=== PATIENT | male | born 1960 | race Caucasian/White ===

== ENCOUNTER 2017-02-16 03:16 | Emergency (ER) | payer OTHER ==
[2017-02-16] MEDS ORDERED: ONDANSETRON 4 MG/2 ML VIAL IVP STA (03:31)
[2017-02-16] MEDS ORDERED: KETOROLAC 60 MG/2 ML VIAL IVP STA (03:31)
[2017-02-16] MEDS ORDERED: SODIUM CHLORIDE 0.9% 1,000 ML IV ONE (03:31)
[2017-02-16] MEDS ORDERED: HYDROmorphone 1 MG/ML SYRINGE IVP STA (03:31)
[2017-02-16] MEDS ORDERED: ONDANSETRON 4 MG/2 ML VIAL ONE (03:45)
[2017-02-16] MEDS ORDERED: HYDROmorphone 1 MG/ML SYRINGE ONE (03:45)
[2017-02-16] MEDS ORDERED: KETOROLAC 30 MG/ML VIAL ONE (03:45)
[2017-02-16] MEDS ORDERED: oxyCODONE/ACET 5/325 Prepack 4 PO STA (05:00)
[2017-02-16] MEDS ORDERED: ONDANSETRON ODT 4 MG Prepack 2 TL PRN (05:01)
[2017-02-16] MEDS ORDERED: HYDROcod/ACET 5/325 Prepack 6 PO ONE (05:03)
[2017-02-16] MEDS ORDERED: ONDANSETRON ODT 4 MG Prepack 2 TL ONE (05:03)
[2017-02-16] MEDS ORDERED: oxyCODONE/ACET 5/325 Prepack 4 PO ONE (05:14)
== END 2017-02-16 05:17 | disposition home or self-care (01) ==
DX: N13.2 Hydronephrosis with renal and ureteral calculous obstruction (principal); R10.31 Right lower quadrant pain
CPT/HCPCS: 36415; 74176; 80053; 81001; 83690; 87077; 87086; 87181; 96374; 96375; 99283; 99284; J1170

== ENCOUNTER 2017-04-18 14:26 | Outpatient (CLI) | payer OTHER ==
[2017-04-18 19:19] LABS: HCT - HEMATOCRIT 41.8 % (42.0-52.0); MEAN CORPUSCULAR HGB CONC 33.5 g/dL (32.0-36.0); MEAN CORPUSCULAR VOLUME 86.4 fL (80.0-94.0); MEAN PLATELET VOLUME 8.8 fL (7.4-11.4); RED BLOOD COUNT 4.83 10^6/uL (4.70-6.10); RED CELL DISTRIBUTION WIDTH 13.1 % (12.0-15.0); WHITE BLOOD COUNT 18.7 x10^3/uL (4.8-10.8)
[2017-04-18 19:55] LABS: ALBUMIN/GLOBULIN RATIO 1.1 (1.0-2.2); BILIRUBIN,TOTAL 0.9 mg/dL (0.2-1.0); BUN - BLOOD UREA NITROGEN 18 mg/dL (6-20); CALCIUM 9.8 mg/dL (8.5-10.3); CARBON DIOXIDE - CO2 25 mmol/L (21-32); CHLORIDE 102 mmol/L (101-111); GFR - MDRD 78 (>89); GLUCOSE 136 mg/dL (70-100); POTASSIUM 3.6 mmol/L (3.5-5.0); SODIUM 138 mmol/L (135-145); TOTAL PROTEIN 7.9 g/dL (6.7-8.2)
[2017-04-21 14:36] LABS: ANA SCREEN NEGATIVE (NEGATIVE)
== END 2017-04-18 23:59 | disposition home or self-care (01) ==
LOC: LAB.WCP 14:26
PROVIDERS: ATTEND Family Medicine
DX: M79.1 Myalgia (principal); R50.9 Fever, unspecified; R79.89 Other specified abnormal findings of blood chemistry; E01.0 Iodine-deficiency related diffuse (endemic) goiter; Z12.5 Encounter for screening for malignant neoplasm of prostate
CPT/HCPCS: 36415; 80053; 80074; 84153; 84443; 84550; 85025; 85651; 86038; 86140; 86200; 86430; 87341

== ENCOUNTER 2017-05-03 07:25 | Outpatient (CLI) | payer OTHER ==
[2017-05-03 13:09] LABS: BILIRUBIN,URINE NEGATIVE (NEGATIVE)
[2017-05-03 13:19] LABS: BASOPHILS % (AUTO) 0.4 %; EOSINOPHILS # (AUTO) 0.1 10^3/uL (0.0-0.7); EOSINOPHILS % (AUTO) 2.9 %; HCT - HEMATOCRIT 39.7 % (42.0-52.0); HGB - HEMOGLOBIN 13.4 g/dL (14.0-18.0); LYMPHOCYTES # (AUTO) 0.7 10^3/uL (1.5-3.5); LYMPHOCYTES % (AUTO) 19.2 %; MEAN CORPUSCULAR HEMOGLOBIN 28.6 pg (27.0-31.0); MEAN CORPUSCULAR HGB CONC 33.8 g/dL (32.0-36.0); MEAN CORPUSCULAR VOLUME 84.7 fL (80.0-94.0); MEAN PLATELET VOLUME 7.8 fL (7.4-11.4); MONOCYTES # (AUTO) 0.4 10^3/uL (0.0-1.0); MONOCYTES % (AUTO) 10.3 %; NEUTROPHILS # (AUTO) 2.5 10^3/uL (1.5-6.6); NEUTROPHILS % (AUTO) 67.2 %; NUCLEATED RED BLOOD CELLS AUTO 0.1 /100WBC; RED BLOOD COUNT 4.68 10^6/uL (4.70-6.10); RED CELL DISTRIBUTION WIDTH 13.1 % (12.0-15.0); UNCORRECTED WHITE BLOOD COUNT 3.7 x10^3/uL; WHITE BLOOD COUNT 3.7 x10^3/uL (4.8-10.8)
[2017-05-03 13:20] LABS: CALCIUM 8.9 mg/dL (8.5-10.3); CREATININE 0.8 mg/dL (0.6-1.2); POTASSIUM 3.9 mmol/L (3.5-5.0)
[2017-05-03 13:49] LABS: UR CULTURE IF IND NOT INDICATED; WBC,URINE 0-3 /HPF (0-3)
== END 2017-05-03 07:26 | disposition home or self-care (01) ==
LOC: LAB.WCP 07:25
PROVIDERS: ATTEND Family Medicine
DX: N39.0 Urinary tract infection, site not specified (principal); N20.0 Calculus of kidney; R97.20 Elevated prostate specific antigen [PSA]
CPT/HCPCS: 36415; 80048; 81001; 84153; 85025; 87086

== ENCOUNTER 2017-05-07 08:00 | Outpatient (CLI) | payer OTHER ==
[2017-05-11 04:59] LABS: TEST RESULT REPORT (())
[2017-05-13 00:06] LABS: TEST RESULT REPORT (())
[2017-05-13 00:34] LABS: TEST RESULT REPORT (())
== END 2017-05-07 23:59 | disposition home or self-care (01) ==
LOC: LAB.WCP 08:00
PROVIDERS: ATTEND Family Medicine
DX: N39.0 Urinary tract infection, site not specified (principal)
CPT/HCPCS: 81599; 82340; 82507; 82570; 83945; 84156; 84300; 84560

== ENCOUNTER 2019-06-20 08:54 | Outpatient (CLI) | payer OTHER ==
--- NOTE | 2019-06-20 12:55 | XRAY Report ---
Reason: RIGHT SHOULDER PAIN Procedure Date: 06/20/2019 Accession Number: [id number] / [id number] Procedure: WCP - Shoulder 3 View RT CPT Code: FULL RESULT: EXAM: RIGHT SHOULDER RADIOGRAPHY EXAM DATE: 06/20/2019 08:54 AM. CLINICAL HISTORY: RIGHT SHOULDER PAIN. COMPARISON: None. TECHNIQUE: 3 views. FINDINGS: Bones: Normal. No fracture or bone lesion. Joints: The glenohumeral and acromioclavicular joints are normal. Soft tissues: The visualized hemithorax is unremarkable. No soft tissue swelling. IMPRESSION: Normal shoulder radiography. [facility]
== END 2019-06-20 23:59 | disposition home or self-care (01) ==
LOC: DI.WCP 08:54 → EDSTATUS 13:09 → DI.WCP 23:59
PROVIDERS: ATTEND Family Medicine
DX: M25.511 Pain in right shoulder (principal)

== ENCOUNTER 2019-07-10 09:00 | Outpatient (CLI) | payer OTHER ==
[2019-07-10 13:03] LABS: BASOPHILS % (AUTO) 0.5 %; EOSINOPHILS # (AUTO) 0.1 10^3/uL (0.0-0.7); EOSINOPHILS % (AUTO) 3.4 %; HGB - HEMOGLOBIN 14.4 g/dL (14.0-18.0); LYMPHOCYTES # (AUTO) 0.6 10^3/uL (1.5-3.5); LYMPHOCYTES % (AUTO) 15.5 %; MEAN CORPUSCULAR HEMOGLOBIN 28.6 pg (27.0-31.0); MEAN CORPUSCULAR HGB CONC 32.9 g/dL (32.0-36.0); MEAN CORPUSCULAR VOLUME 87.1 fL (80.0-94.0); MEAN PLATELET VOLUME 10.6 fL (7.4-11.4); MONOCYTES # (AUTO) 0.4 10^3/uL (0.0-1.0); MONOCYTES % (AUTO) 11.5 %; NEUTROPHILS # (AUTO) 2.6 10^3/uL (1.5-6.6); NEUTROPHILS % (AUTO) 68.8 %; PLT - PLATELET COUNT 191 10^3/uL (130-450); RED BLOOD COUNT 5.03 10^6/uL (4.70-6.10); RED CELL DISTRIBUTION WIDTH 13.2 % (12.0-15.0); WHITE BLOOD COUNT 3.8 x10^3/uL (4.8-10.8)
[2019-07-10 13:14] LABS: CALCIUM 9.2 mg/dL (8.5-10.3); CARBON DIOXIDE - CO2 28 mmol/L (21-32); CHLORIDE 105 mmol/L (101-111); GLUCOSE 100 mg/dL (70-100); SODIUM 138 mmol/L (135-145)
[2019-07-10 14:05] LABS: ALBUMIN 4.5 g/dL (3.2-5.5); ALBUMIN/GLOBULIN RATIO 1.5 (1.0-2.2); ALKALINE PHOSPHATASE 54 IU/L (42-121); ALT ALANINE AMINOTRANSFERASE 28 IU/L (10-60); AST ASPARTATE AMINOTRANSFERASE 25 IU/L (10-42); BILIRUBIN,TOTAL 0.6 mg/dL (0.2-1.0); BUN - BLOOD UREA NITROGEN 22 mg/dL (6-20); CHOL/HDL RATIO 4.3 (<5.0); CHOLESTEROL 185 mg/dL; GFR - MDRD 77 (>89); HDL CHOLESTEROL 43 mg/dL; LDL CHOLESTEROL,CALCULATED 127 mg/dL; TOTAL PROTEIN 7.5 g/dL (6.7-8.2); VLDL CHOLESTEROL 15 mg/dL
== END 2019-07-10 23:59 | disposition home or self-care (01) ==
LOC: LAB.WCP 09:00
PROVIDERS: ATTEND Family Medicine
DX: E78.5 Hyperlipidemia, unspecified (principal); R73.9 Hyperglycemia, unspecified
CPT/HCPCS: 36415; 80053; 80061; 83721; 84443; 85025

== ENCOUNTER 2020-03-04 08:23 | Outpatient (CLI) | payer OTHER ==
[2020-03-04 13:39] LABS: BASOPHILS % (AUTO) 0.8 %; EOSINOPHILS # (AUTO) 0.2 10^3/uL (0.0-0.7); EOSINOPHILS % (AUTO) 3.9 %; HGB - HEMOGLOBIN 14.1 g/dL (14.0-18.0); LYMPHOCYTES # (AUTO) 0.6 10^3/uL (1.5-3.5); LYMPHOCYTES % (AUTO) 16.3 %; MEAN CORPUSCULAR HEMOGLOBIN 28.5 pg (27.0-31.0); MEAN CORPUSCULAR HGB CONC 32.9 g/dL (32.0-36.0); MEAN CORPUSCULAR VOLUME 86.8 fL (80.0-94.0); MEAN PLATELET VOLUME 10.8 fL (7.4-11.4); MONOCYTES # (AUTO) 0.4 10^3/uL (0.0-1.0); MONOCYTES % (AUTO) 9.8 %; NEUTROPHILS # (AUTO) 2.7 10^3/uL (1.5-6.6); NEUTROPHILS % (AUTO) 68.9 %; PLT - PLATELET COUNT 197 10^3/uL (130-450); RED BLOOD COUNT 4.94 10^6/uL (4.70-6.10); RED CELL DISTRIBUTION WIDTH 12.9 % (12.0-15.0); WHITE BLOOD COUNT 3.9 x10^3/uL (4.8-10.8)
[2020-03-04 13:55] LABS: ALBUMIN 4.4 g/dL (3.2-5.5); ALBUMIN/GLOBULIN RATIO 1.4 (1.0-2.2); BILIRUBIN,TOTAL 0.9 mg/dL (0.2-1.0); CALCIUM 9.3 mg/dL (8.5-10.3); CREATININE 0.9 mg/dL (0.6-1.2); TOTAL PROTEIN 7.5 g/dL (6.7-8.2)
== END 2020-03-04 23:59 | disposition home or self-care (01) ==
LOC: LAB.WCP 08:23
PROVIDERS: ATTEND Family Medicine
DX: R07.89 Other chest pain (principal)
CPT/HCPCS: 36415; 80053; 82550; 84443; 84484; 85025; 85651

== ENCOUNTER 2021-11-29 08:00 | Outpatient (CLI) | payer OTHER ==
[2021-11-29 12:00] LABS: BILIRUBIN,URINE NEGATIVE (NEGATIVE); CLARITY,URINE CLEAR (CLEAR); GLUCOSE, URINE (UA) NEGATIVE (NEGATIVE); KETONES,URINE (UA) NEGATIVE (NEGATIVE); LEUKOCYTE ESTERASE, URINE TRACE (NEGATIVE); NITRITE,URINE NEGATIVE (NEGATIVE); OCCULT BLOOD,URINE NEGATIVE (NEGATIVE); PROTEIN,URINE NEGATIVE (NEGATIVE); UROBILINOGEN,URINE 0.2 (NORMAL) E.U./dL (NORMAL)
[2021-11-29 12:02] LABS: BASOPHILS % (AUTO) 0.4 %; EOSINOPHILS # (AUTO) 0.1 10^3/uL (0.0-0.7); EOSINOPHILS % (AUTO) 3.1 %; HCT - HEMATOCRIT 43.9 % (42.0-52.0); HGB - HEMOGLOBIN 14.7 g/dL (14.0-18.0); LYMPHOCYTES # (AUTO) 0.6 10^3/uL (1.5-3.5); LYMPHOCYTES % (AUTO) 12.4 %; MEAN CORPUSCULAR HEMOGLOBIN 29.2 pg (27.0-31.0); MEAN CORPUSCULAR HGB CONC 33.5 g/dL (32.0-36.0); MEAN CORPUSCULAR VOLUME 87.1 fL (80.0-94.0); MEAN PLATELET VOLUME 10.4 fL (7.4-11.4); MONOCYTES # (AUTO) 0.5 10^3/uL (0.0-1.0); MONOCYTES % (AUTO) 11.5 %; NEUTROPHILS # (AUTO) 3.3 10^3/uL (1.5-6.6); NEUTROPHILS % (AUTO) 72.4 %; PLT - PLATELET COUNT 231 10^3/uL (130-450); RED BLOOD COUNT 5.04 10^6/uL (4.70-6.10); RED CELL DISTRIBUTION WIDTH 13.1 % (12.0-15.0); WHITE BLOOD COUNT 4.6 x10^3/uL (4.8-10.8)
[2021-11-29 12:18] LABS: ALBUMIN 4.3 g/dL (3.2-5.5); ALBUMIN/GLOBULIN RATIO 1.3 (1.0-2.2); ALKALINE PHOSPHATASE 67 IU/L (42-121); ALT ALANINE AMINOTRANSFERASE 34 IU/L (10-60); AST ASPARTATE AMINOTRANSFERASE 28 IU/L (10-42); BILIRUBIN,TOTAL 0.7 mg/dL (0.2-1.0); BUN - BLOOD UREA NITROGEN 22 mg/dL (6-20); CALCIUM 9.6 mg/dL (8.5-10.3); CARBON DIOXIDE - CO2 27 mmol/L (21-32); CHLORIDE 104 mmol/L (101-111); CHOL/HDL RATIO 4.6 (<5.0); CHOLESTEROL 231 mg/dL; GFR - MDRD 76 (>89); GLUCOSE 97 mg/dL (70-100); HDL CHOLESTEROL 50 mg/dL; LDL CHOLESTEROL,CALCULATED 167 mg/dL; LDL/HDL RATIO 3.3 (<3.6); POTASSIUM 4.1 mmol/L (3.5-5.0); SODIUM 137 mmol/L (135-145); TOTAL PROTEIN 7.6 g/dL (6.7-8.2); TRIGLYCERIDES 70 mg/dL; VLDL CHOLESTEROL 14 mg/dL
[2021-11-29 12:34] LABS: BACTERIA,URINE Rare /HPF (None Seen); RBC,URINE 0-5 /HPF (0-5); SQUAMOUS EPITHELIAL CELL,UR RARE Squamous (<= Few)
[2021-11-29 15:10] LABS: ESTIMATED AVERAGE GLUCOSE 117 mg/dL (70-100); HEMOGLOBIN A1c% 5.7 % (4.27-6.07)
== END 2021-11-29 23:59 | disposition home or self-care (01) ==
LOC: LAB.WCP 08:00
PROVIDERS: ATTEND Nurse Practitioner
DX: Z00.8 Encounter for other general examination (principal); Z13.220 Encounter for screening for lipoid disorders; R73.9 Hyperglycemia, unspecified
CPT/HCPCS: 36415; 80053; 80061; 81001; 83036; 83721; 85025; 87086

== ENCOUNTER 2023-01-17 08:22 | Outpatient (CLI) | payer OTHER ==
[2023-01-17 12:50] LABS: BASOPHILS % (AUTO) 0.3 %; EOSINOPHILS # (AUTO) 0.1 10^3/uL (0.0-0.7); EOSINOPHILS % (AUTO) 1.5 %; LYMPHOCYTES # (AUTO) 0.7 10^3/uL (1.5-3.5); LYMPHOCYTES % (AUTO) 9.6 %; MEAN CORPUSCULAR HEMOGLOBIN 29.2 pg (27.0-31.0); MEAN CORPUSCULAR HGB CONC 33.3 g/dL (32.0-36.0); MEAN CORPUSCULAR VOLUME 87.7 fL (80.0-94.0); MEAN PLATELET VOLUME 10.5 fL (7.4-11.4); MONOCYTES # (AUTO) 0.7 10^3/uL (0.0-1.0); NEUTROPHILS # (AUTO) 5.7 10^3/uL (1.5-6.6); NEUTROPHILS % (AUTO) 79.3 %; PLT - PLATELET COUNT 236 10^3/uL (130-450); RED BLOOD COUNT 5.13 10^6/uL (4.70-6.10); RED CELL DISTRIBUTION WIDTH 12.8 % (12.0-15.0); WHITE BLOOD COUNT 7.2 x10^3/uL (4.8-10.8)
[2023-01-17 13:20] LABS: ALBUMIN 4.5 g/dL (3.2-5.5); ALBUMIN/GLOBULIN RATIO 1.2 (1.0-2.2); ALKALINE PHOSPHATASE 73 IU/L (42-121); ALT ALANINE AMINOTRANSFERASE 31 IU/L (10-60); AST ASPARTATE AMINOTRANSFERASE 28 IU/L (10-42); BILIRUBIN,TOTAL 0.6 mg/dL (0.2-1.0); BUN - BLOOD UREA NITROGEN 21 mg/dL (6-20); CALCIUM 9.4 mg/dL (8.5-10.3); CARBON DIOXIDE - CO2 29 mmol/L (21-32); CHLORIDE 100 mmol/L (101-111); CHOL/HDL RATIO 4.2 (<5.0); CHOLESTEROL 212 mg/dL; CREATININE 0.8 mg/dL (0.6-1.2); GFR - MDRD 98 (>89); GLUCOSE 100 mg/dL (70-100); HDL CHOLESTEROL 50 mg/dL; LDL CHOLESTEROL,CALCULATED 145 mg/dL; LDL/HDL RATIO 2.9 (<3.6); POTASSIUM 4.3 mmol/L (3.5-5.0); SODIUM 136 mmol/L (135-145); TOTAL PROTEIN 8.2 g/dL (6.7-8.2); TRIGLYCERIDES 86 mg/dL; VLDL CHOLESTEROL 17 mg/dL
[2023-01-17 14:04] LABS: ESTIMATED AVERAGE GLUCOSE 114 mg/dL (70-100); HEMOGLOBIN A1c% 5.6 % (4.27-6.07)
== END 2023-01-17 08:23 | disposition home or self-care (01) ==
LOC: LAB.N 08:22
PROVIDERS: ATTEND Nurse Practitioner
DX: E78.5 Hyperlipidemia, unspecified (principal); R73.03 Prediabetes; R97.20 Elevated prostate specific antigen [PSA]; K21.9 Gastro-esophageal reflux disease without esophagitis
CPT/HCPCS: 36415; 80053; 80061; 83036; 83721; 84153; 85025

== ENCOUNTER 2024-07-01 09:26 | Outpatient (CLI) | payer OTHER ==
[2024-07-01 12:50] LABS: BASOPHILS % (AUTO) 0.8 %; EOSINOPHILS # (AUTO) 0.1 10^3/uL (0.0-0.7); EOSINOPHILS % (AUTO) 1.6 %; HCT - HEMATOCRIT 43.8 % (42.0-52.0); HGB - HEMOGLOBIN 14.8 g/dL (14.0-18.0); LYMPHOCYTES # (AUTO) 0.6 10^3/uL (1.5-3.5); LYMPHOCYTES % (AUTO) 16.7 %; MEAN CORPUSCULAR HEMOGLOBIN 29.2 pg (27.0-31.0); MEAN CORPUSCULAR HGB CONC 33.8 g/dL (32.0-36.0); MEAN CORPUSCULAR VOLUME 86.4 fL (80.0-94.0); MONOCYTES # (AUTO) 0.4 10^3/uL (0.0-1.0); MONOCYTES % (AUTO) 10.3 %; NEUTROPHILS # (AUTO) 2.7 10^3/uL (1.5-6.6); NEUTROPHILS % (AUTO) 70.3 %; PLT - PLATELET COUNT 191 10^3/uL (130-450); RED BLOOD COUNT 5.07 10^6/uL (4.70-6.10); RED CELL DISTRIBUTION WIDTH 12.6 % (12.0-15.0); WHITE BLOOD COUNT 3.8 x10^3/uL (4.8-10.8)
[2024-07-01 13:26] LABS: ALBUMIN 4.3 g/dL (3.2-5.5); ALBUMIN/GLOBULIN RATIO 1.3 (1.0-2.2); ALKALINE PHOSPHATASE 82 IU/L (42-121); ALT ALANINE AMINOTRANSFERASE 22 IU/L (10-60); AST ASPARTATE AMINOTRANSFERASE 20 IU/L (10-42); BILIRUBIN,TOTAL 0.6 mg/dL (0.2-1.0); BUN - BLOOD UREA NITROGEN 19 mg/dL (6-20); CALCIUM 9.6 mg/dL (8.5-10.3); CARBON DIOXIDE - CO2 30 mmol/L (21-32); CHLORIDE 105 mmol/L (101-111); CHOL/HDL RATIO 3.9 (<5.0); CHOLESTEROL 172 mg/dL; CREATININE 0.8 mg/dL (0.6-1.3); GFR - MDRD 98 (>89); GLUCOSE 96 mg/dL (74-104); HDL CHOLESTEROL 44 mg/dL; LDL CHOLESTEROL,CALCULATED 111 mg/dL; LDL/HDL RATIO 2.5 (<3.6); POTASSIUM 3.9 mmol/L (3.5-4.5); SODIUM 138 mmol/L (135-145); TOTAL PROTEIN 7.5 g/dL (6.4-8.9); TRIGLYCERIDES 85 mg/dL; VLDL CHOLESTEROL 17 mg/dL
== END 2024-07-01 09:27 | disposition home or self-care (01) ==
LOC: LAB.N 09:26
PROVIDERS: ATTEND Nurse Practitioner
DX: Z00.00 Encounter for general adult medical examination without abnormal findings (principal); R73.03 Prediabetes; R97.20 Elevated prostate specific antigen [PSA]; E78.5 Hyperlipidemia, unspecified
CPT/HCPCS: 36415; 80053; 80061; 83721; 84153; 85025

== ENCOUNTER 2024-12-23 12:31 | Inpatient (IN) ==
[2024-12-23 14:48] LABS: BASOPHILS % (AUTO) 0.2 %; EOSINOPHILS % (AUTO) 0.2 %; HCT - HEMATOCRIT 37.3 % (42.0-52.0); HGB - HEMOGLOBIN 12.5 g/dL (14.0-18.0); LYMPHOCYTES # (AUTO) 0.3 10^3/uL (1.5-3.5); LYMPHOCYTES % (AUTO) 2.7 %; MEAN CORPUSCULAR HEMOGLOBIN 28.8 pg (27.0-31.0); MEAN CORPUSCULAR HGB CONC 33.5 g/dL (32.0-36.0); MEAN CORPUSCULAR VOLUME 85.9 fL (80.0-94.0); MEAN PLATELET VOLUME 9.2 fL (7.4-11.4); MONOCYTES # (AUTO) 0.9 10^3/uL (0.0-1.0); MONOCYTES % (AUTO) 8.5 %; NEUTROPHILS # (AUTO) 9.4 10^3/uL (1.5-6.6); PLT - PLATELET COUNT 140 10^3/uL (130-450); RED BLOOD COUNT 4.34 10^6/uL (4.70-6.10); RED CELL DISTRIBUTION WIDTH 12.9 % (12.0-15.0); WHITE BLOOD COUNT 10.7 x10^3/uL (4.8-10.8)
[2024-12-23 15:01] LABS: ALBUMIN 3.8 g/dL (3.2-5.5); ALBUMIN/GLOBULIN RATIO 1.4 (1.0-2.2); BILIRUBIN,TOTAL 0.8 mg/dL (0.2-1.0); CALCIUM 9.3 mg/dL (8.5-10.3); CREATININE 1.5 mg/dL (0.6-1.3); POTASSIUM 3.6 mmol/L (3.5-4.5); TOTAL PROTEIN 6.6 g/dL (6.4-8.9)
--- NOTE | 2024-12-23 15:12 | ED Physician Documentation ---
History of Present Illness Stated complaint Stated Complaint: HERNÁNDEZ, CHILLS, CAN'T EAT Chief complaint Chief Complaint: Fever Additonal information Additional information: 64-year-old male with history of renal calculi and BPH and recurrent urinary tract infection presents to emergency department for body aches fevers and chills that started last night. On Monday patient was seen at [facility] where he was diagnosed with a 1.2 cm kidney stone of the left kidney. He says the symptoms have now fully resolved but last day started experiencing fevers, nausea, chills, headache he says he feels very similar to last time he had a urinary tract infection he was being followed by [facility] infectious disease as well as urology for prolonged period of time last seen about 6 months to a year ago and planning on having possible TURP. Meds/Allgy Home Medications Ambulatory Orders Medication Instructions Recorded Confirmed tamsulosin 0.4 mg capsule 0.4 mg PO DAILY #10 caps 02/16/17 10/17/24 lisinopril 10 mg tablet 10 mg PO DAILY 09/12/24 10/17/24 multivitamin (Daily Multi-Vitamin 1 tab PO DAILY 09/12/24 10/17/24 tablet) omeprazole magnesium 10 mg oral 10 mg PO DAILY 09/12/24 10/17/24 suspension,delayed release (Prilosec) diclofenac sodium 50 mg 50 mg PO TID PRN pain #30 tabs 09/26/24 10/17/24 tablet,delayed release Allergies Allergies Allergy/AdvReac Type Severity Reaction Status Date / Time No Known Drug Allergies Allergy Verified 12/23/24 12:38 [facility] Medical History Medical History GERD (gastroesophageal reflux disease) Enlarged prostate Hypertension Family History Family History Son Sleep apnea Social History Social History (Updated 12/23/24 @ 12:44 by Lan Whitfield RN) Smoking Status: Former smoker If you are a former smoker, when did you quit? (Date/Year): 2008 Number of Years Smoked: 30 Do you dip or chew tobacco?: No Do you vape?: No Patient requests smoking cessation consult: No Living arrangement: At home Relationship: Level: Independent Do you feel safe in your home environment?: Yes Suffered physical, verbal, emotional, or financial abuse?: No History of Abuse: No ETOH Use: None Substance Use: denies use Are you sexually active?: Yes POLST Patient has POLST: No Exam Constitutional normal general appearance, no apparent distress, average body habitus, no limitations and alert HENMT normocephalic and head/scalp atraumatic Eyes PERRL Chest inspection of chest normal Respiratory breath sounds equal bilaterally and normal respiratory effort Cardiovascular normal heart rate noted Gastrointestinal abdomen normal to inspection, abdomen soft to palpation, nontender to palpation and nondistended Genitourinary no CVA tenderness and bladder normal to palpation Extremities normal to inspection Skin Diaphoretic Results Vitals Vitals: Vital Signs - 24 hr 12/23/24 12:39 12/23/24 14:04 12/23/24 15:46 Temperature 38.3 C H Temperature Source Oral Pulse Rate 88 67 Respiratory Rate 18 16 Blood Pressure 136/92 H 160/87 H O2 Saturation 96 94 O2 Source Room air Room air Pain Intensity 0 0 12/23/24 16:00 12/23/24 16:51 12/23/24 16:58 Temperature 37.8 C 37.8 C Temperature Source Temporal Artery Scan Pulse Rate 78 Respiratory Rate 16 Blood Pressure 153/87 H O2 Saturation 97 O2 Source Room air Pain Intensity 12/23/24 17:08 Temperature Temperature Source Pulse Rate Respiratory Rate Blood Pressure O2 Saturation 97 O2 Source Pain Intensity Oxygen O2 Source Room air Labs Labs: Laboratory Tests 12/23/24 12/23/24 12/23/24 12:50 14:42 15:00 WBC 10.7 RBC 4.34 L Hgb 12.5 L Hct 37.3 L MCV 85.9 MCH 28.8 MCHC 33.5 RDW 12.9 Plt Count 140 MPV 9.2 Neut # (Auto) 9.4 H Lymph # (Auto) 0.3 L [place] # (Auto) 0.9 Eos # (Auto) 0.0 Baso # (Auto) 0.0 Absolute Nucleated RBC 0.00 Nucleated RBC % 0.0 Sodium 134 L Potassium 3.6 Chloride 102 Carbon Dioxide 25 Anion Gap 7.0 BUN 30 H Creatinine 1.5 H Estimated GFR (MDRD) 47 L Glucose 129 H Lactic Acid Calcium 9.3 Total Bilirubin 0.8 AST 24 ALT 27 Alkaline Phosphatase 58 Total Protein 6.6 Albumin 3.8 Globulin 2.8 Albumin/Globulin Ratio 1.4 Urine Color YELLOW Urine Clarity HAZY Urine pH 6.0 Ur Specific Vancleve 1.020 Urine Protein 30 H Urine Glucose (UA) NEGATIVE Urine Ketones TRACE Urine Occult Blood LARGE H Urine Nitrite NEGATIVE Urine Bilirubin NEGATIVE Urine Urobilinogen 0.2 (NORMAL) Ur Leukocyte Esterase MODERATE H Urine RBC 11-25 H Urine WBC 11-25 H Ur Squamous Epith Cells NONE SEEN Urine Bacteria Moderate H Ur Microscopic Review INDICATED Urine Culture Comments INDICATED Nasal Adenovirus (PCR) NOT DETECTED Nasal B. parapertussis DNA (PCR) NOT DETECTED Nasal Coronavir 229E PCR NOT DETECTED Nasal Coronavir HKU1 PCR NOT DETECTED Nasal Coronavir NL63 PCR NOT DETECTED Nasal Coronavir OC43 PCR NOT DETECTED Nasal Enterovir/Rhinovir PCR NOT DETECTED Nasal Influenza B PCR NOT DETECTED Nasal Influenza A PCR NOT DETECTED Nasal Parainfluen 1 PCR NOT DETECTED Nasal Parainfluen 2 PCR NOT DETECTED Nasal Parainfluen 3 PCR NOT DETECTED Nasal Parainfluen 4 PCR NOT DETECTED Nasal RSV (PCR) NOT DETECTED Nasal B.pertussis DNA PCR NOT DETECTED Nasal C.pneumoniae (PCR) NOT DETECTED Lenard Human Metapneumo PCR NOT DETECTED Nasal M.pneumoniae (PCR) NOT DETECTED Nasal SARS-CoV-2 (PCR) NOT DETECTED 12/23/24 16:07 WBC RBC Hgb Hct MCV MCH MCHC RDW Plt Count MPV Neut # (Auto) Lymph # (Auto) [place] # (Auto) Eos # (Auto) Baso # (Auto) Absolute Nucleated RBC Nucleated RBC % Sodium Potassium Chloride Carbon Dioxide Anion Gap BUN Creatinine Estimated GFR (MDRD) Glucose Lactic Acid 0.8 Calcium Total Bilirubin AST ALT Alkaline Phosphatase Total Protein Albumin Globulin Albumin/Globulin Ratio Urine Color Urine Clarity Urine pH Ur Specific Vancleve Urine Protein Urine Glucose (UA) Urine Ketones Urine Occult Blood Urine Nitrite Urine Bilirubin Urine Urobilinogen Ur Leukocyte Esterase Urine RBC Urine WBC Ur Squamous Epith Cells Urine Bacteria Ur Microscopic Review Urine Culture Comments Nasal Adenovirus (PCR) Nasal B. parapertussis DNA (PCR) Nasal Coronavir 229E PCR Nasal Coronavir HKU1 PCR Nasal Coronavir NL63 PCR Nasal Coronavir OC43 PCR Nasal Enterovir/Rhinovir PCR Nasal Influenza B PCR Nasal Influenza A PCR Nasal Parainfluen 1 PCR Nasal Parainfluen 2 PCR Nasal Parainfluen 3 PCR Nasal Parainfluen 4 PCR Nasal RSV (PCR) Nasal B.pertussis DNA PCR Nasal C.pneumoniae (PCR) [place] Human Metapneumo PCR Nasal M.pneumoniae (PCR) Nasal SARS-CoV-2 (PCR) Rads (name of study) CT abd pelvis: Relevant Findings:: Final report received and EMP independent interpretation of test Interpretation: IMPRESSION: Multiple obstructing stones in the distal left ureter, largest measuring 1.5 x 0.7 cm. There is severe hydronephrosis and hydroureter, with a delayed nephrogram. PD Medical Decision Making ED course ED course: 64-year-old male presents emergency department for Headache, body aches, fevers and chills. He has known left renal calculi that he was diagnosed with at [facility] says he is actually overall feeling better no CVA tenderness no bladder pain or tenderness. Labs are complete for further evaluation patient does not appear to have leukocytosis no anemia BUN elevated at 30, creatinine 1.5, GFR 47. Urinalysis does appear to have large amount of hematuria and moderate leukocytes with bacteria. 2 sets of blood cultures were collected prior to administering Rocephin. CT abdomen pelvis was complete for further evaluation given recent diagnosis of renal calculi and patient appears to have multiple obstructing renal stones in the distal left ureter the largest measuring up to 1.5 x 0.7 mm. I spoke with Dr. Salgado who has agreed to come in and place a stent on the patient and patient will require hospitalization for left pyelonephritis. Patient is agreeable to stay here for this procedure I also spoke with hospitalist who has agreed to admit the patient after stent placement. Consults Consults: Consulted (name) (Urology, Dr. Salgado) Discharge Plan Discharge Patient Disposition: 67 [facility] DC/Xfer Clinical Impression: Acute pyelonephritis, Multiple renal calculi Prescriptions: No Action tamsulosin 0.4 MG capsule 0.4 mg PO DAILY Qty: 10 0RF lisinopril 10 mg tablet 10 mg PO DAILY Prilosec 10 mg susp,delayed release for recon 10 mg PO DAILY multivitamin [Daily Multi-Vitamin] Tablet 1 tab PO DAILY diclofenac sodium 50 mg tablet,delayed release (DR/EC) 50 mg PO TID PRN (Reason: pain) Qty: 30 0RF Print Language: Sri Lankan Stand Alone Forms: PCP List
[2024-12-23 15:15] LABS: BILIRUBIN,URINE NEGATIVE (NEGATIVE); GLUCOSE, URINE (UA) NEGATIVE (NEGATIVE); KETONES,URINE (UA) TRACE mg/dL (NEGATIVE); LEUKOCYTE ESTERASE, URINE MODERATE (NEGATIVE); NITRITE,URINE NEGATIVE (NEGATIVE); OCCULT BLOOD,URINE LARGE (NEGATIVE); PROTEIN,URINE 30 mg/dL (NEGATIVE); UROBILINOGEN,URINE 0.2 (NORMAL) E.U./dL (NORMAL)
[2024-12-23 15:18] LABS: CLARITY,URINE HAZY (CLEAR)
[2024-12-23 15:35] LABS: BACTERIA,URINE Moderate /HPF (None Seen); SQUAMOUS EPITHELIAL CELL,UR NONE SEEN (<= Few)
[2024-12-23] MEDS: LACTATED RINGERS 1,000 ML IV STA (15:45)
[2024-12-23] MEDS: ONDANSETRON 4 MG/2 ML VIAL IVP STA (15:45)
[2024-12-23] MEDS: ACETAMINOPHEN 500 MG TABLET PO STA (15:46)
[2024-12-23 15:52] LABS: CORONAVIRUS 229E-RESP PCR NOT DETECTED; CORONAVIRUS HKU1-RESP PCR NOT DETECTED; CORONAVIRUS NL63-RESP PCR NOT DETECTED
[2024-12-23 15:53] LABS: B. PARAPERTUSSIS- RESP PCR PAN NOT DETECTED; B. PERTUSSIS- RESP PCR PANEL NOT DETECTED; C. PNEUMONIAE- RESP PCR PANEL NOT DETECTED; CORONAVIRUS OC43-RESP PCR NOT DETECTED; HUMAN METAPNEUMOVIRUS NOT DETECTED; INFLUENZA A- RESP PCR PANEL NOT DETECTED; INFLUENZA B - RESP PCR PANEL NOT DETECTED; M. PNEUMONIAE- RESP PCR PANEL NOT DETECTED; PARAINFLUENZA VIRUS 1 NOT DETECTED; PARAINFLUENZA VIRUS 2 NOT DETECTED; PARAINFLUENZA VIRUS 4 NOT DETECTED; RHINOVIRUS/ENTEROVIRUS NOT DETECTED; RSV- RESP PCR PANEL NOT DETECTED; SARS-CoV-2 -RESP PCR PANEL NOT DETECTED
[2024-12-23] MEDS ORDERED: iohexoL-300 100 ML VIAL ONE (15:54)
[2024-12-23] MEDS: iohexoL-300 100 ML VIAL IVP ONE (16:34)
--- NOTE | 2024-12-23 17:04 | CT Report ---
PROCEDURE: CT Abdomen/Pelvis W INDICATIONS: recnt dx of renal calculi, febrile, chills CONTRAST: Omni 300 100ml TECHNIQUE: After the administration of intravenous contrast, a CT scan of the abdomen and pelvis was performed. Images were recorded and evaluated at appropriate window settings. Reformats: coronal and sagittal. F or radiation dose reduction, the following was used: automated exposure control, adjustment of mA and /or kV according to patient size. COMPARISON: 02/16/2017 FINDINGS: Image quality: Diagnostic. Lower chest: Small hiatal hernia. Liver: Multiple hepatic cysts. Gallbladder: Cholelithiasis without wall thickening. Biliary tree: No intrahepatic or extrahepatic dilation, accounting for age. Spleen: Mildly enlarged, measuring 13.6 cm. Pancreas: No pancreatic ductal dilation. Adrenals: Stable 1 cm right adrenal nodule, statistically benign. Kidneys and ureters: Multiple obstructing stones in the distal left ureter, largest measuring 1.5 x 0 .7 cm, the remaining stones are punctate. There is a nonobstructing 4 mm stone in the left kidney. Se moon left-sided hydronephrosis and hydroureter, and a delayed left-sided nephrogram. Punctate, nonobs tructing right-sided nephrolithiasis. Stomach, bowel and peritoneum: No gastric or small bowel dilation. No abnormal wall thickening. React ac free fluid in the pelvis. Diverticulosis without evidence of diverticulitis. Lymph nodes: No central or retroperitoneal adenopathy. Vessels: No infrarenal aortic aneurysm. Patent portal vein. PELVIS Reproductive organs: Unremarkable. Bladder: No abnormal wall thickening, accounting for underdistention. Pelvic lymph nodes: No pelvic adenopathy by size criteria. Bones: No aggressive osseous abnormality. Other: No significant ventral or inguinal hernia. IMPRESSION: Multiple obstructing stones in the distal left ureter, largest measuring 1.5 x 0.7 cm. There is sever e hydronephrosis and hydroureter, with a delayed nephrogram. Reviewed by: Lokesh Dhillon MD on 12/23/2024 5:03 PM PST Approved by: Lokesh Dhillon MD on 12/23/2024 5:03 PM PST Station ID: [id number]
--- NOTE | 2024-12-23 17:08 | PREOP HISTORY & PHYSICAL ---
Surgical History & Physical Chief Complaint/HPI Chief Complaint: left UVJ Stone, sepsis History of Present Illness: Ac is a 64-year-old male with history of kidney stones and he states ureteroscopy and stent in the past, also with history of urinary tract infections and with planned TURP by Dr. Burroughs in the future. He presents today with bodyaches and fevers and chills which started last night. He states he was seen at [facility] where he was diagnosed with a 1.2 cm stone in his kidney on the left side. A CT scan here showed a left large UVJ stone with ipsilateral severe hydroureteronephrosis. Surprisingly he does not have any significant flank pain He has no leukocytosis but he does have an JACQUELINE with creatinine 1.5 up from baseline 0.8 Home Meds and Allergies tamsulosin 0.4 mg capsule 0.4 mg PO DAILY #10 caps 02/16/17 lisinopril 10 mg tablet 10 mg PO DAILY 09/12/24 multivitamin (Daily Multi-Vitamin tablet) 1 tab PO DAILY 09/12/24 omeprazole magnesium 10 mg oral suspension,delayed release (Prilosec) 10 mg PO DAILY 09/12/24 diclofenac sodium 50 mg tablet,delayed release 50 mg PO TID PRN pain #30 tabs 09/26/24 Allergies Allergy/AdvReac Type Severity Reaction Status Date / Time No Known Drug Allergies Allergy Verified 12/23/24 12:38 Vital Signs O2 Saturation: 97 Patient Review Patient Review Pertinent Tests Reviewed [facility] Medical History Medical History GERD (gastroesophageal reflux disease) Enlarged prostate Hypertension Family History Family History Son Sleep apnea Social History Social History (Updated 12/23/24 @ 12:44 by Lan Whitfield RN) Smoking Status: Former smoker If you are a former smoker, when did you quit? (Date/Year): 2008 Number of Years Smoked: 30 Do you dip or chew tobacco?: No Do you vape?: No Patient requests smoking cessation consult: No Living arrangement: At home Relationship: Level: Independent Do you feel safe in your home environment?: Yes Suffered physical, verbal, emotional, or financial abuse?: No History of Abuse: No ETOH Use: None Substance Use: denies use Are you sexually active?: Yes POLST Patient has POLST: No Exam Exam NAD diaphoretic RRR CTA b/l Assessment & Plan Assessment & Plan Assessment & Plan: 64-year-old male with likely urinary tract infection, febrile at home with concern for severe infection versus sepsis. CT scan with 15 mm obstructing left UVJ stone started on ceftriaxone -Urgent add-on for cystoscopy and left ureteral stent placement. We discussed the risk, benefits, alternatives of the procedure. Specific risks of infection, bleeding, injury to adjacent structures, need for additional procedures, failure of therapy, stent colic were discussed. He understands that he will need a subsequent procedure to remove the stone. I recommend admission overnight for concern for pyelonephritis. Patient states understanding and consents to the above plan -NPO -to OR and then floor -Subsequent ureteroscopy procedure can be performed by myself or Dr. Burroughs
--- NOTE | 2024-12-23 17:22 | HISTORY & PHYSICAL EXAMINATION ---
Chief Complaint Chief Complaint Chief Complaint: Fevers, chills, aches History of Present Illness Admitted From Admitted From:: Home History Obtained From Records Reviewed: EMR History obtained from: Patient Exam Limitations: None History of Present Illness HPI Comment/Other: Patient is a 64-year-old male with a history of recurrent UTIs, usually with Staph aureus who presents with fevers, aches, chills.He states been going on for the past two days. He has a poor appetite, and nothing has been tasting good. A few years ago, he had a urine infection that required hospitalization, he felt similarly. He is having no suprapubic pain, no dysuria, no urinary urgency, incontinence, or any other urinary symptoms at this time. He has a long history of recurrent urinary tract infections, previous urine cultures have grown Staph aureus. He has had multiple cystoscopies in the past as well. He was placed on prophylactic Bactrim for a short period of time. He is not currently doing this. He has plans with his urologist to get a TURP done in the outpatient setting. Past medical history: Hypertension, GERD, recurrent urinary tract infections Medications: Lisinopril, Prilosec Allergies: No known drug allergies Surgical history: Cystoscopies Family history: Nonpertinent Social history: Denies alcohol, tobacco, recreational drug use. , lives with . Ambulates independently. 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 Meds/Allgy Home Medications Ambulatory Orders Medication Instructions Recorded Confirmed tamsulosin 0.4 mg capsule 0.4 mg PO DAILY #10 caps 02/16/17 10/17/24 lisinopril 10 mg tablet 10 mg PO DAILY 09/12/24 10/17/24 multivitamin (Daily Multi-Vitamin 1 tab PO DAILY 09/12/24 10/17/24 tablet) omeprazole magnesium 10 mg oral 10 mg PO DAILY 09/12/24 10/17/24 suspension,delayed release (Prilosec) diclofenac sodium 50 mg 50 mg PO TID PRN pain #30 tabs 09/26/24 10/17/24 tablet,delayed release Allergies Allergies Allergy/AdvReac Type Severity Reaction Status Date / Time No Known Drug Allergies Allergy Verified 12/23/24 12:38 [facility] Medical History Medical History (Updated 12/23/24 @ 17:55 by Lacy Leo CRNA) Acute kidney injury GERD (gastroesophageal reflux disease) Enlarged prostate Hypertension Surgical History Surgical History (Updated 12/23/24 @ 17:54 by Lacy Leo CRNA) History of cystoscopy Family History Family History Son Sleep apnea Social History Social History (Updated 12/23/24 @ 12:44 by Lan Whitfield RN) Smoking Status: Former smoker If you are a former smoker, when did you quit? (Date/Year): 2008 Number of Years Smoked: 30 Do you dip or chew tobacco?: No Do you vape?: No Patient requests smoking cessation consult: No Living arrangement: At home Relationship: Level: Independent Do you feel safe in your home environment?: Yes Suffered physical, verbal, emotional, or financial abuse?: No History of Abuse: No ETOH Use: None Substance Use: denies use Are you sexually active?: Yes POLST Patient has POLST: No Review of Systems Constitutional Reports: Fatigue, Fever, Chills, Malaise and Weakness; Denies: Diaphoresis, Night sweats or Changes in appetite or eating habits Eyes Reports: Eye discharge (clear discharge, chronic); Denies: Pain, Irritation, Amaurosis, Blurry vision, Floaters, Field loss, Vision loss or Change in vision Ears, nose, mouth, and throat Denies: Ear pain, Ear discharge, Hearing loss, Hearing aids, Vertigo or Neck pain Cardiovascular Denies: Irregular heart rate, chest pain, palpitations, edema, swelling of feet/ankles, Syncope or shortness of breath with exertion Respiratory Denies: Shortness of breath, Cough, Sputum production, Change in phlegm color or Wheezing Gastrointestinal Reports: Poor appetite and Heartburn; Denies: Abdominal pain, Abdominal distention, Nausea, Vomiting, Coffee grounds in vomit, Diarrhea, Constipation or Bloating Genitourinary Denies: Painful urination, Flank pain, Incontinence, Urinary frequency, Urinary urgency, Nocturia, Blood in urine, Genital pain or Genital lesion Musculoskeletal Denies: Back pain, Neck pain, Extremity pain, Extremity swelling, Gout or Joint pain Integumentary/Breast Denies: Rash, Itching, Dryness, Redness, Skin pain or Skin tenderness Neurological Reports: General weakness; Denies: Headache, Focal weakness, Weakness in extremities, Numbness in extremities, Dizziness, Vertigo or Confusion Psychiatric Denies: Depression, Anxiety, Mood swings, Panic attacks, Change in sleep pattern or Hopelessness Endocrine Reports: Fatigue; Denies: Excessive urination, Excessive thirst, Polyphagia or Cold intolerance Hematologic/Lymphatic Denies: Anemia, Easy bruising, Petechiae or Easy bleeding Allergic/Immunologic Denies: Tongue swelling, Facial swelling or Wheezing Prior Level of Functionality: Fully independent of ADLs. Exam Constitutional normal general appearance, no apparent distress and average body habitus HENMT normocephalic and head/scalp atraumatic Eyes PERRL, EOMs intact bilaterally, conjunctivae normal and no scleral icterus Neck/C-Spine visual inspection normal and trachea midline Lymph no lymphadenopathy noted Chest inspection of chest normal and palpation of chest normal Respiratory breath sounds equal bilaterally, normal respiratory effort, clear to auscultation bilaterally, no wheezes, no rales and no use of accessory muscles Cardiovascular normal heart rate noted, regular rhythm noted, no gallop and no rub Gastrointestinal abdomen normal to inspection, abdomen soft to palpation and nontender to palpation Genitourinary no CVA tenderness, bladder normal to palpation and external appearance normal Back/Pelvis spine normal to inspection, no thoracic spine tenderness and no lumbar spine tenderness Extremities normal to inspection, normal to palpation and no tenderness Neurology no movement abnormality noted, no focal motor deficit noted and no sensory deficits noted Psychiatry mental status grossly normal, oriented x3, thought process normal and cooperative Skin skin color normal, no rash, no lesions, no ecchymosis noted and no wounds Conclusion/Plan Problem List (1) Obstructive uropathy: Plan: CT abdomen/pelvis shows multiple obstructing stones in distal left ureter, largest measuring 1.5 x 0.7 cm. Ultrasound severe hydronephrosis and hydroureter, with delayed nephrogram. Urology following, plan for cystoscopy, stone removal tonight. Continue Rocephin 1 g daily at this time. (2) Urinary tract infection: Plan: Continue Rocephin 1 g daily at this time. Qualifiers: Hematuria presence: without hematuria Urinary tract infection type: s ite unspecified Qualified Code(s): N39.0 - Urinary tract infection, site not specified (3) Acute kidney injury: Plan: Likely postrenal due to obstruction. Continue IV fluids at this time. Trend in the morning. (4) Hypertension: Plan: Hold lisinopril at this time due to acute kidney injury. Continue to trend, restart when able. Qualifiers: Hypertension type: unspecified Qualified Code(s): I10 - Essential (primary) hypertension (5) GERD (gastroesophageal reflux disease): Plan: Continue Pepcid. Qualifiers: Esophagitis presence: esophagitis presence not specified Qualified Code(s): K21.9 - Gastro-esophageal reflux disease without esophagitis Lab Results Lab results reviewed: Yes 12/23/24 14:42 12/23/24 14:42 Diagnostic Imaging Results Diagnostic Imaging Results: positive Final report reviewed Core Measures Anticipated LOS I expect patient to be DC'd or transferred within 96 hours.: Yes DVT/VTE - Prophylaxis VTE/DVT Device ordered at admit?: Yes VTE/DVT Prophylaxis med ordered at admit?: Yes Stroke - Rehab Assessment Rehab services assessment to be ordered?: No AMI - Statin at Admit Aspirin Prescribed on Admit: No
[2024-12-23] MEDS: cefTRIAXone 1 GM in SODIUM CHLORIDE 0.9% MINIBAG 100 ML IV STA (17:37)
[2024-12-23] MEDS ORDERED: MIDAZOLAM 2 MG/2 ML VIAL ONE (17:44)
[2024-12-23] MEDS ORDERED: fentaNYL 100 MCG/2 ML VIAL ONE (17:44)
[2024-12-23] MEDS ORDERED: PROPOFOL 200 MG/20 ML VIAL IVP ONE (17:44)
[2024-12-23] MEDS ORDERED: SUCCINYLCHOLINE 200 MG/10 ML VIAL ONE (17:44)
[2024-12-23] MEDS ORDERED: LIDOCAINE 2% URO-JET 5 ML SYRINGE UR ONE (17:51)
[2024-12-23] MEDS ORDERED: iohexoL-240 20 ML VIAL IVP ONE (17:51)
--- NOTE | 2024-12-23 17:52 | ANESTHESIA PROCEDURE NOTE ---
Pre-Anesthesia VS, & Labs Diagnosis Surgical Diagnosis:: left UVJ stone Procedure Procedure: cystoscopy, left ureteroscopy, stent placement Vitals Vital Signs: Temp Pulse Resp BP Pulse Ox 37.8 C 67 16 150/85 H 97 12/23/24 16:58 12/23/24 17:40 12/23/24 17:40 12/23/24 17:40 12/23/24 17:08 NPO NPO: Other (1530 ate part of a cookie) Last Food Intake: 1530 Lab Results Current Lab Results: Laboratory Tests 12/23/24 16:07: Lactic Acid 0.8 12/23/24 14:42: WBC 10.7, RBC 4.34 L, Hgb 12.5 L, Hct 37.3 L, MCV 85.9, MCH 28.8, MCHC 33.5, RDW 12.9, Plt Count 140, MPV 9.2, Neut # (Auto) 9.4 H, Lymph # (Auto) 0.3 L, [place] # (Auto) 0.9, Eos # (Auto) 0.0, Baso # (Auto) 0.0, Absolute Nucleated RBC 0.00, Nucleated RBC % 0.0, Sodium 134 L, Potassium 3.6, Chloride 102, Carbon Dioxide 25, Anion Gap 7.0, BUN 30 H, Creatinine 1.5 H, Estimated GFR (MDRD) 47 L, Glucose 129 H, Calcium 9.3, Total Bilirubin 0.8, AST 24, ALT 27, Alkaline Phosphatase 58, Total Protein 6.6, Albumin 3.8, Globulin 2.8, Albumin/Globulin Ratio 1.4 Lab results reviewed: Yes 12/23/24 14:42 12/23/24 14:42 Meds/Allgy Home Medications Ambulatory Orders Medication Instructions Recorded Confirmed tamsulosin 0.4 mg capsule 0.4 mg PO DAILY #10 caps 02/16/17 10/17/24 lisinopril 10 mg tablet 10 mg PO DAILY 09/12/24 10/17/24 multivitamin (Daily Multi-Vitamin 1 tab PO DAILY 09/12/24 10/17/24 tablet) omeprazole magnesium 10 mg oral 10 mg PO DAILY 09/12/24 10/17/24 suspension,delayed release (Prilosec) diclofenac sodium 50 mg 50 mg PO TID PRN pain #30 tabs 09/26/24 10/17/24 tablet,delayed release Allergies Allergies Allergy/AdvReac Type Severity Reaction Status Date / Time No Known Drug Allergies Allergy Verified 12/23/24 12:38 PFSH Medical History Medical History (Updated 12/23/24 @ 17:55 by Lacy Leo CRNA) Acute kidney injury GERD (gastroesophageal reflux disease) Enlarged prostate Hypertension Surgical History Surgical History (Updated 12/23/24 @ 17:54 by Lacy Leo CRNA) History of cystoscopy Family History Family History Son Sleep apnea Social History Social History (Updated 12/23/24 @ 12:44 by Lan Whitfield RN) Smoking Status: Former smoker If you are a former smoker, when did you quit? (Date/Year): 2008 Number of Years Smoked: 30 Do you dip or chew tobacco?: No Do you vape?: No Patient requests smoking cessation consult: No Living arrangement: At home Relationship: Level: Independent Do you feel safe in your home environment?: Yes Suffered physical, verbal, emotional, or financial abuse?: No History of Abuse: No ETOH Use: None Substance Use: denies use Are you sexually active?: Yes POLST Patient has POLST: No Anesthesia Exam (Expanded) Exam General: Alert, Oriented x3 and Cooperative Dental: WNL Mouth Openin Fingerbreadth Neck Mobility: Normal Mallampati classification: III Thyromental Distance: 4-6 cm Plan Plan Anesthesia Type: General (RSI) Consent for Procedure(s) Verified and Reviewed: Yes Code Status: Attempt Resuscitation ASA Classification ASA classification: 3-Severe systemic disease Is this case an emergency?: Yes
[2024-12-23] MEDS ORDERED: ROCURONIUM 50 MG/5 ML VIAL ONE (18:22)
[2024-12-23] MEDS ORDERED: ONDANSETRON 4 MG/2 ML VIAL ONE (18:33)
[2024-12-23] MEDS ORDERED: DEXAMETHASONE 4 MG/ML VIAL ONE (18:33)
[2024-12-23] MEDS ORDERED: SUGAMMADEX 200 MG/2 ML VIAL IVP ONE (18:34)
[2024-12-23] MEDS ORDERED: NALOXONE 0.4 MG/ML VIAL IVP PRN (19:02)
[2024-12-23] MEDS ORDERED: MORPHINE 2 MG/ML CARPUJECT IVP PRN (19:02)
[2024-12-23] MEDS ORDERED: HYDROmorphone 0.5 MG/0.5 ML SYRINGE IVP PRN (19:02)
[2024-12-23] MEDS ORDERED: ATROPINE ABBOJECT 1 MG/10 ML SYRINGE IVP PRN (19:02)
[2024-12-23] MEDS ORDERED: ONDANSETRON 4 MG/2 ML VIAL IVP PRN (19:02)
[2024-12-23] MEDS ORDERED: fentaNYL 100 MCG/2 ML VIAL IVP PRN (19:02)
[2024-12-23] MEDS ORDERED: SODIUM CHLORIDE FLUSH 0.9% 10 ML SYRINGE IVP PRN (19:13)
--- NOTE | 2024-12-23 19:22 | ANESTHESIA POST OP EVALUATION ---
Anesthesia Post Eval Post Anesthesia Eval Vitals: Last Vital Signs Temp 37.4 C 12/23/24 19:15 Pulse 102 H 12/23/24 19:15 Resp 25 H 12/23/24 19:15 BP 158/91 H 12/23/24 19:15 Pulse Ox 99 12/23/24 19:15 CV Function Including HR & BP: Stable Pain Control: Satisfactory Nausea & Vomiting: Negative Mental Status: Baseline Respiratory Status: Airway Patent Hydration Status: Satisfactory Anesthesia Complications: None
[2024-12-23] MEDS ORDERED: LACTATED RINGERS 1,000 ML IV SCH (20:00)
--- NOTE | 2024-12-23 20:16 | OPERATIVE REPORT ---
Operative Report General Procedure Data: Operation Date: 12/23/24 18:00 Proposed Procedures p Cystoscopy With Ureteral Stent Placement(Left) - Tang Salgado MD Actual Procedures p Cystoscopy With Ureteral Stent Placement, URETEROSCOPY, STENT MA NIPULATION(Left) - Tang Salgado MD Anesthesia Type General Case Staff Anesthesia Provider: Lacy Leo Times Into Recovery: 12/23/24 18:54 Procedure Start: 12/23/24 18:22 Procedure End: 12/23/24 18:47 Time out: 12/23/24 18:21 Implants STENT URETERAL [id number] Pre-Op Diagnosis: left distal ureteral stone Post Op Diagnosis: left distal ureteral stone Procedure Note Findings: Large distal radioopaque stone Complications: Stent migrated proximally, requiring ureteroscopy to pull distally Other Other Information/Narrative: After informed consent was obtained the patient was brought to the OR and laid in the supine position. The patient was anesthetized per anesthesia protocols and prepped and draped in usual sterile fashion in the dorsolithotomy position. A formal timeout was performed reconfirming the patient, procedure and la terality. Fluoroscopy was performed which showed a large distal radiopaque stone in the left distal ureter A 22 Hebrew scope was advanced easily into urinary bladder. There were no masses or lesions. His left hemitrigone was enlarged and it was difficult to gain access to his left UVJ. This required manipulation with an angled sensor wire to eventually gain access. There was significant amount of cheesy white debris that was draining from behind the stone. We were then able to place a wire up past the stone into the kidney. A 6 Hebrew 28 cm stent was placed with good curling noted in the kidney and then good curling noted in the bladder, however the stent then seem to be pulled into the kidney and migrated proximally. We could see on fluoroscopy it had migrated to proximal to the distal ureteral stone on the left. Using a short semirigid ureteroscope we Lau into the left UVJ and using a basket we grasped the end of the stent and brought it out to the bladder. It stayed this time. Copious amounts of cheesy white purulent debris was draining from the stent. The bladder was emptied and Uro-Jet was placed This concluded procedure and the patient tolerated the procedure well. He will be admitted overnight for monitoring. He will likely go home tomorrow with antibiotics He will need definitive ureteroscopic procedure in the future to remove stone
[2024-12-23] MEDS: HEPARIN 5,000 UNIT/ML VIAL SUBQ SCH (21:19)
[2024-12-24] MEDS ORDERED: VANCOMYCIN INJ 2 GM in SODIUM CHLORIDE 0.9% 500 ML IV SCH (06:00)
[2024-12-24] MEDS: SODIUM CHLORIDE FLUSH 0.9% 10 ML SYRINGE IVP SCH (06:57)
--- NOTE | 2024-12-24 08:24 | PROVIDER PROGRESS NOTE ---
Subjective Prog Note Date Prog Note Date: 12/24/24 Prog Note Time: 08:22 Subjective Pt reports feeling: Improved Subjective: much improved overall Current Medications Current Medications Current Medications: Current Medications Generic Name Dose Route Start Last Admin Trade Name Freq PRN Reason Stop Dose Admin Ceftriaxone Sodium 1 gm 12/24/24 16:00 Ceftriaxone 1 Gm Vial IVP 1600 TIFFANI Heparin Sodium (Porcine) 5,000 unit 12/23/24 21:00 12/23/24 21:19 Heparin 5,000 Unit/Ml Vial SUBQ 5,000 unit BID TIFFANI Administration Vancomycin HCl 2 gm/ Sodium 500 mls @ 250 mls/hr 12/24/24 06:00 Chloride IV 12/25/24 05:59 ONCE TIFFANI Vancomycin HCl 1.5 gm/ Sodium 500 mls @ 250 mls/hr 12/25/24 01:00 Chloride IV Q24H TIFFANI Multivitamins/Minerals 1 tab 12/24/24 08:00 Multivitamin W/Minerals Tablet PO DAILYWM TIFFANI Pantoprazole Sodium 40 mg 12/24/24 07:00 Pantoprazole 40 Mg Tablet PO QDAC TIFFANI Sodium Chloride 10 ml 12/23/24 19:13 Sodium Chloride Flush 0.9% 10 Ml Syringe IVP PRN PRN NEEDED PER PROVIDER ORDERS Sodium Chloride 10 ml 12/24/24 01:00 12/24/24 06:57 Sodium Chloride Flush 0.9% 10 Ml Syringe IVP Not Given 0100,0900,1700 TIFFANI Tamsulosin HCl 0.4 mg 12/24/24 09:00 Tamsulosin 0.4 Mg Capsule PO DAILY TIFFANI Vancomycin HCl 1 each 12/24/24 05:31 Vancomycin: Pharmacy To Dose MC .ONCE PRN PER PHARMACY Objective Vital Signs/Intake & Output Reviewed Vital Signs: Yes Vital Signs: Vital Signs x48h Temp Pulse Resp BP Pulse Ox 12/24/24 08:02 36.6 C 54 L 22 139/69 H 97 12/24/24 04:44 36.5 C 57 L 18 129/67 96 Intake & Output: Intake & Output 12/21/24 12/22/24 12/23/24 12/24/24 23:59 23:59 23:59 23:59 Intake Total 3200 / 3200 Balance 3200 / 3200 Weight (kg) 96.4 kg Objective General Appearance: positive No acute distress Lab Results 12/23/24 14:42 12/23/24 14:42 Other Labs: Lab Results x24hrs 12/23/24 12/23/24 12/23/24 Range/Units 16:07 15:00 14:42 WBC 10.7 (4.8-10.8) x10^3/uL RBC 4.34 L (4.70-6.10) 10^6/uL Hgb 12.5 L (14.0-18.0) g/dL Hct 37.3 L (42.0-52.0) % MCV 85.9 (80.0-94.0) fL MCH 28.8 (27.0-31.0) pg MCHC 33.5 (32.0-36.0) g/dL RDW 12.9 (12.0-15.0) % Plt Count 140 (130-450) 10^3/uL MPV 9.2 (7.4-11.4) fL Neut # (Auto) 9.4 H (1.5-6.6) 10^3/uL Lymph # (Auto) 0.3 L (1.5-3.5) 10^3/uL [place] # (Auto) 0.9 (0.0-1.0) 10^3/uL Eos # (Auto) 0.0 (0.0-0.7) 10^3/uL Baso # (Auto) 0.0 (0.0-0.1) 10^3/uL Absolute Nucleated RBC 0.00 x10^3/uL Nucleated RBC % 0.0 /100WBC Sodium 134 L (135-145) mmol/L Potassium 3.6 (3.5-4.5) mmol/L Chloride 102 (101-111) mmol/L Carbon Dioxide 25 (21-32) mmol/L Anion Gap 7.0 (6-13) BUN 30 H (6-20) mg/dL Creatinine 1.5 H (0.6-1.3) mg/dL Estimated GFR (MDRD) 47 L (>89) Glucose 129 H (74-104) mg/dL Lactic Acid 0.8 (0.5-2.2) mmol/L Calcium 9.3 (8.5-10.3) mg/dL Total Bilirubin 0.8 (0.2-1.0) mg/dL AST 24 (10-42) IU/L ALT 27 (10-60) IU/L Alkaline Phosphatase 58 (42-121) IU/L Total Protein 6.6 (6.4-8.9) g/dL Albumin 3.8 (3.2-5.5) g/dL Globulin 2.8 (2.1-4.2) g/dL Albumin/Globulin Ratio 1.4 (1.0-2.2) Urine Color Urine Clarity (CLEAR) Urine pH (5.0-7.5) PH Ur Specific [place] (1.002-1.030) Urine Protein (NEGATIVE) mg/dL Urine Glucose (UA) (NEGATIVE) mg/dL Urine Ketones (NEGATIVE) mg/dL Urine Occult Blood (NEGATIVE) Urine Nitrite (NEGATIVE) Urine Bilirubin (NEGATIVE) Urine Urobilinogen (NORMAL) E.U./dL Ur Leukocyte Esterase (NEGATIVE) Urine RBC (0-5) /HPF Urine WBC (0-3) /HPF Ur Squamous Epith Cells (<= Few) Urine Bacteria (None Seen) /HPF Ur Microscopic Review Urine Culture Comments Nasal Adenovirus (PCR) NOT DETECTED Nasal B. parapertussis DNA (PCR) NOT DETECTED Nasal Coronavir 229E PCR NOT DETECTED Nasal Coronavir HKU1 PCR NOT DETECTED Nasal Coronavir NL63 PCR NOT DETECTED Nasal Coronavir OC43 PCR NOT DETECTED Nasal Enterovir/Rhinovir PCR NOT DETECTED Nasal Influenza B PCR NOT DETECTED Nasal Influenza A PCR NOT DETECTED Nasal Parainfluen 1 PCR NOT DETECTED Nasal Parainfluen 2 PCR NOT DETECTED Nasal Parainfluen 3 PCR NOT DETECTED Nasal Parainfluen 4 PCR NOT DETECTED Nasal RSV (PCR) NOT DETECTED Nasal B.pertussis DNA PCR NOT DETECTED Nasal C.pneumoniae (PCR) NOT DETECTED [place] Human Metapneumo PCR NOT DETECTED Nasal M.pneumoniae (PCR) NOT DETECTED Nasal SARS-CoV-2 (PCR) NOT DETECTED 12/23/24 Range/Units 12:50 WBC (4.8-10.8) x10^3/uL RBC (4.70-6.10) 10^6/uL Hgb (14.0-18.0) g/dL Hct (42.0-52.0) % MCV (80.0-94.0) fL MCH (27.0-31.0) pg MCHC (32.0-36.0) g/dL RDW (12.0-15.0) % Plt Count (130-450) 10^3/uL MPV (7.4-11.4) fL Neut # (Auto) (1.5-6.6) 10^3/uL Lymph # (Auto) (1.5-3.5) 10^3/uL [place] # (Auto) (0.0-1.0) 10^3/uL Eos # (Auto) (0.0-0.7) 10^3/uL Baso # (Auto) (0.0-0.1) 10^3/uL Absolute Nucleated RBC x10^3/uL Nucleated RBC % /100WBC Sodium (135-145) mmol/L Potassium (3.5-4.5) mmol/L Chloride (101-111) mmol/L Carbon Dioxide (21-32) mmol/L Anion Gap (6-13) BUN (6-20) mg/dL Creatinine (0.6-1.3) mg/dL Estimated GFR (MDRD) (>89) Glucose (74-104) mg/dL Lactic Acid (0.5-2.2) mmol/L Calcium (8.5-10.3) mg/dL Total Bilirubin (0.2-1.0) mg/dL AST (10-42) IU/L ALT (10-60) IU/L Alkaline Phosphatase (42-121) IU/L Total Protein (6.4-8.9) g/dL Albumin (3.2-5.5) g/dL Globulin (2.1-4.2) g/dL Albumin/Globulin Ratio (1.0-2.2) Urine Color YELLOW Urine Clarity HAZY (CLEAR) Urine pH 6.0 (5.0-7.5) PH Ur Specific [place] 1.020 (1.002-1.030) Urine Protein 30 H (NEGATIVE) mg/dL Urine Glucose (UA) NEGATIVE (NEGATIVE) mg/dL Urine Ketones TRACE (NEGATIVE) mg/dL Urine Occult Blood LARGE H (NEGATIVE) Urine Nitrite NEGATIVE (NEGATIVE) Urine Bilirubin NEGATIVE (NEGATIVE) Urine Urobilinogen 0.2 (NORMAL) (NORMAL) E.U./dL Ur Leukocyte Esterase MODERATE H (NEGATIVE) Urine RBC 11-25 H (0-5) /HPF Urine WBC 11-25 H (0-3) /HPF Ur Squamous Epith Cells NONE SEEN (<= Few) Urine Bacteria Moderate H (None Seen) /HPF Ur Microscopic Review INDICATED Urine Culture Comments INDICATED Nasal Adenovirus (PCR) Nasal B. parapertussis DNA (PCR) Nasal Coronavir 229E PCR Nasal Coronavir HKU1 PCR Nasal Coronavir NL63 PCR Nasal Coronavir OC43 PCR Nasal Enterovir/Rhinovir PCR Nasal Influenza B PCR Nasal Influenza A PCR Nasal Parainfluen 1 PCR Nasal Parainfluen 2 PCR Nasal Parainfluen 3 PCR Nasal Parainfluen 4 PCR Nasal RSV (PCR) Nasal B.pertussis DNA PCR Nasal C.pneumoniae (PCR) Len[place] Human Metapneumo PCR Nasal M.pneumoniae (PCR) Nasal SARS-CoV-2 (PCR) Assessment/Plan Problem List (1) Obstructive uropathy: Impression: 64-year-old male with history of kidney stones presents with urinary tract infection, obstructing 1.5 cm distal left ureteral stone. Ureteral stent placed December 23, 2024 Much improved overnight -I recommend discharge today with empiric Bactrim antibiotics double strength BID for 10 days. -Can follow-up with me or with Dr. Burroughs. Patient is already seeing Dr. Burroughs in 10 days so he will follow-up with him -Patient understands he will need to have a definitive ureteroscopy in the future. He understands that his stent must be exchanged or removed within 3 months time (2) Urinary tract infection: Qualifiers: Urinary tract infection type: site unspecified Hematuria presence: w ithout hematuria Qualified Code(s): N39.0 - Urinary tract infection, site not specified (3) Acute kidney injury: (4) Hypertension: Qualifiers: Hypertension type: unspecified Qualified Code(s): I10 - Essential (primary) hypertension (5) GERD (gastroesophageal reflux disease): Qualifiers: Esophagitis presence: esophagitis presence not specified Qualified Code(s): K21.9 - Gastro-esophageal reflux disease without esophagitis
[2024-12-24] MEDS: PANTOPRAZOLE 40 MG TABLET PO SCH (09:10)
[2024-12-24] MEDS: TAMSULOSIN 0.4 MG CAPSULE PO SCH (09:10)
[2024-12-24] MEDS: MULTIVITAMIN W/MINERALS TABLET PO SCH (09:11)
[2024-12-24] MEDS ORDERED: VANCOMYCIN INJ 2 GM in SODIUM CHLORIDE 0.9% 500 ML IV ONE (12:00)
[2024-12-24] MEDS: SULFAMETH/TRIMETH DS 800/160 MG TABLET PO SCH ×2 (12:27→21:15)
--- NOTE | 2024-12-24 14:26 | PHARMACY PROGRESS NOTE ---
Best Possible Medication History Admit Date and Time: 12/23/242054 Home Medications Medication Instructions Recorded Confirmed Type tamsulosin 0.4 mg capsule 0.4 mg PO DAILY #10 caps 02/16/17 12/24/24 Rx lisinopril 10 mg tablet 10 mg PO DAILY 09/12/24 12/24/24 History multivitamin (Daily Multi-Vitamin 1 tab PO DAILY 09/12/24 12/24/24 History tablet) omeprazole magnesium 10 mg oral 10 mg PO DAILY 09/12/24 12/24/24 History suspension,delayed release (Prilosec) Processed by: Pharmacy Medications reviewed in ED?: Yes Medication History completed: Yes Patient Interview: Completed Secondary Source(s): Pharmacy records and Insurance records [facility] Statement: As the person ultimately responsible for medication therapy, providers are able to order a medication from an existing home medication list in [facility] via the "Reconcile Routine" prior to Confirmation of that medication by telecommunications support. Such practice is discouraged except when the physician, in their clinical judgment, deems that a medical need exists for a medication without regard to previous use.
--- NOTE | 2024-12-24 15:00 | PROVIDER PROGRESS NOTE ---
Assessment/Plan Problem List (1) Gram-positive bacteremia: Assessment/Plan: * Pt with 4 of 4 specimens positive for gram-positive now confirmed to be Staph aureus * This is likely secondary to the impacted stone that has now resulted in bacteremia * Patient is hemodynamically stable * WBC trending up, from 3 to 10 * Pt is afebrile (2) Obstructive uropathy: Assessment/Plan: * Patient presented with obstructive uropathy * Is s/p ureteral stent placement on 12/23/[address] Salgado (3) Urinary tract infection: Qualifiers: Hematuria presence: without hematuria Urinary tract infection type: s ite unspecified Qualified Code(s): N39.0 - Urinary tract infection, site not specified Assessment/Plan: * Continue ceftriaxone pending blood culture results, urine culture results (4) Acute kidney injury: Assessment/Plan: * Creatinine elevated at 1.5 on admission, likely 2/2 to above * Check repeat BMP in the a.m. (5) Hypertension: Qualifiers: Hypertension type: unspecified Qualified Code(s): I10 - Essential (primary) hypertension Assessment/Plan: * Mildly elevated BP * Hold Lisinopril given JACQUELINE * Pending repeat labs in am, consider restaring in am (6) GERD (gastroesophageal reflux disease): Qualifiers: Esophagitis presence: esophagitis presence not specified Qualified Code(s): K21.9 - Gastro-esophageal reflux disease without esophagitis Assessment/Plan: * Stable * Cont PPI Current Meds Current Meds: Current Medications Generic Name Dose Route Start Last Admin Trade Name Freq PRN Reason Stop Dose Admin Ceftriaxone Sodium 1 gm 12/24/24 16:00 Ceftriaxone 1 Gm Vial IVP 1600 TIFFANI Heparin Sodium (Porcine) 5,000 unit 12/23/24 21:00 12/24/24 09:10 Heparin 5,000 Unit/Ml Vial SUBQ 5,000 unit BID TIFFANI Administration Multivitamins/Minerals 1 tab 12/24/24 08:00 12/24/24 09:11 Multivitamin W/Minerals Tablet PO 1 tab DAILYWM TIFFANI Administration Pantoprazole Sodium 40 mg 12/24/24 07:00 12/24/24 09:10 Pantoprazole 40 Mg Tablet PO 40 mg QDAC TIFFANI Administration Sodium Chloride 10 ml 12/23/24 19:13 Sodium Chloride Flush 0.9% 10 Ml Syringe IVP PRN PRN NEEDED PER PROVIDER ORDERS Sodium Chloride 10 ml 12/24/24 01:00 12/24/24 09:11 Sodium Chloride Flush 0.9% 10 Ml Syringe IVP 10 ml 0100,0900,1700 TIFFANI Administration Tamsulosin HCl 0.4 mg 12/24/24 09:00 12/24/24 09:10 Tamsulosin 0.4 Mg Capsule PO 0.4 mg DAILY TIFFANI Administration Trimethoprim/Sulfamethoxazole 1 tab 12/24/24 12:30 12/24/24 12:27 Sulfameth/Trimeth Ds 800/160 Mg Tablet PO 1 tab BID TIFFANI Administration Lab Result Lab results reviewed: Yes 12/23/24 14:42 12/23/24 14:42 Diagnostic Imaging Results Diagnostic Imaging Results: Final report reviewed Additional Planning Condition/Complexity: Stable My Orders: My Active Orders 12/24/24 13:49 Echo Transthoracic Complete [ECHO] Routine 12/25/24 05:00 BMP - BASIC METABOLIC PANEL [CHEM] DAILYLAB CBC [CBC - COMP BLD CT W/AUTO DIFF] [HEME] DAILYLAB 12/25/24 09:00 Blood Culture [CULTURE, BLOOD #1] [RM] DAILY Blood Culture [CULTURE, BLOOD #2] [RM] DAILY 12/26/24 05:00 BMP - BASIC METABOLIC PANEL [CHEM] DAILYLAB CBC [CBC - COMP BLD CT W/AUTO DIFF] [HEME] DAILYLAB 12/27/24 05:00 BMP - BASIC METABOLIC PANEL [CHEM] DAILYLAB CBC [CBC - COMP BLD CT W/AUTO DIFF] [HEME] DAILYLAB Consult/Specialty: Urology Subjective Subjective Patient Reports: Feeling Better Nursing Reports: No Complaints Objective Vital Signs: Vital Signs - 24 hr 12/23/24 15:46 12/23/24 16:00 12/23/24 16:51 Temperature 37.8 C Temperature Source Temporal Artery Scan Pulse Rate 78 Pulse Rate [Brachial] Respiratory Rate 16 Blood Pressure 153/87 H Blood Pressure [Right Brachial artery] O2 Saturation 97 O2 Source Room air Sedation scale Pain Intensity 0 12/23/24 16:58 12/23/24 17:08 12/23/24 17:40 Temperature 37.8 C Temperature Source Pulse Rate 67 Pulse Rate [Brachial] Respiratory Rate 16 Blood Pressure 150/85 H Blood Pressure [Right Brachial artery] O2 Saturation 97 O2 Source Sedation scale Pain Intensity 0 12/23/24 18:05 12/23/24 18:54 12/23/24 19:02 Temperature 36.7 C 37.6 C Temperature Source Pulse Rate 67 118 H 108 H Pulse Rate [Brachial] Respiratory Rate 18 27 H Blood Pressure 148/82 H 157/73 H Blood Pressure [Right Brachial artery] O2 Saturation 97 94 98 O2 Source Room air Sedation scale Pain Intensity 12/23/24 19:07 12/23/24 19:10 12/23/24 19:15 Temperature 36.9 C 37.4 C 37.4 C Temperature Source Pulse Rate 102 H 102 H 102 H Pulse Rate [Brachial] Respiratory Rate 25 H 25 H 25 H Blood Pressure 124/88 150/91 H 158/91 H Blood Pressure [Right Brachial artery] O2 Saturation 99 99 99 O2 Source Sedation scale Pain Intensity 12/23/24 19:24 12/23/24 19:30 12/23/24 20:00 Temperature 37.5 C 37.1 C 37.1 C Temperature Source Temporal Artery Scan Temporal Artery Scan Pulse Rate 97 Pulse Rate [Brachial] 100 103 H Respiratory Rate 27 H 22 22 Blood Pressure 157/88 H Blood Pressure [Right Brachial artery] 150/95 H 141/97 H O2 Saturation 99 91 L 92 O2 Source Room air Room air Sedation scale 0-Fully awake 0-Fully awake Pain Intensity 0 0 12/23/24 20:15 12/23/24 20:30 12/23/24 21:00 Temperature Temperature Source Pulse Rate Pulse Rate [Brachial] 104 H 100 90 Respiratory Rate 22 20 20 Blood Pressure Blood Pressure [Right Brachial artery] 139/93 H 136/95 H 145/89 H O2 Saturation 93 95 95 O2 Source Room air Room air Room air Sedation scale 0-Fully awake 0-Fully awake 0-Fully awake Pain Intensity 0 0 0 12/23/24 22:30 12/23/24 23:38 12/24/24 04:44 Temperature 36.6 C 36.5 C Temperature Source Skin Skin Pulse Rate Pulse Rate [Brachial] 95 68 57 L Respiratory Rate 20 20 18 Blood Pressure Blood Pressure [Right Brachial artery] 144/84 H 127/76 129/67 O2 Saturation 92 96 96 O2 Source Room air Room air Room air Sedation scale 0-Fully awake 0-Fully awake 1-Arouses easily Pain Intensity 0 12/24/24 08:02 12/24/24 12:11 Temperature 36.6 C 36.7 C Temperature Source Temporal Artery Scan Temporal Artery Scan Pulse Rate Pulse Rate [Brachial] 54 L 54 L Respiratory Rate 22 19 Blood Pressure Blood Pressure [Right Brachial artery] 139/69 H 127/73 O2 Saturation 97 95 O2 Source Room air Room air Sedation scale 0-Fully awake 0-Fully awake Pain Intensity 0 0 Oxygen O2 Source Room air I&O (Last 24 Hrs): Intake and Output Totals x24h 12/22/24 12/23/24 12/24/24 23:59 23:59 23:59 Intake Total 3200 / 3200 480 / 480 Balance 3200 / 3200 480 / 480 General: Alert, Oriented x3 and No acute distress HEENT: Atraumatic and EOMI Neuro: CN 2-12 Grossly Intact and Oriented Times 3 Cardiovascular: Regular rate, Normal S1, Normal S2 and No murmurs Respiratory: No respiratory distress and Breath sounds nml Abdomen: Normal bowel sounds, Soft, No tenderness and No masses Extremities: No clubbing, No cyanosis and No edema Skin: No rashes, No breakdown and No significant lesion Results Results: Laboratory Results WBC 10.7 x10^3/uL (4.8-10.8) 12/23/24 14:42 RBC 4.34 10^6/uL (4.70-6.10) L 12/23/24 14:42 Hgb 12.5 g/dL (14.0-18.0) L 12/23/24 14:42 Hct 37.3 % (42.0-52.0) L 12/23/24 14:42 MCV 85.9 fL (80.0-94.0) 12/23/24 14:42 MCH 28.8 pg (27.0-31.0) 12/23/24 14:42 MCHC 33.5 g/dL (32.0-36.0) 12/23/24 14:42 RDW 12.9 % (12.0-15.0) 12/23/24 14:42 Plt Count 140 10^3/uL (130-450) 12/23/24 14:42 MPV 9.2 fL (7.4-11.4) 12/23/24 14:42 Neut # (Auto) 9.4 10^3/uL (1.5-6.6) H 12/23/24 14:42 Lymph # (Auto) 0.3 10^3/uL (1.5-3.5) L 12/23/24 14:42 [place] # (Auto) 0.9 10^3/uL (0.0-1.0) 12/23/24 14:42 Eos # (Auto) 0.0 10^3/uL (0.0-0.7) 12/23/24 14:42 Baso # (Auto) 0.0 10^3/uL (0.0-0.1) 12/23/24 14:42 Absolute Nucleated RBC 0.00 x10^3/uL 12/23/24 14:42 Nucleated RBC % 0.0 /100WBC 12/23/24 14:42 Sodium 134 mmol/L (135-145) L 12/23/24 14:42 Potassium 3.6 mmol/L (3.5-4.5) 12/23/24 14:42 Chloride 102 mmol/L (101-111) 12/23/24 14:42 Carbon Dioxide 25 mmol/L (21-32) 12/23/24 14:42 Anion Gap 7.0 (6-13) 12/23/24 14:42 BUN 30 mg/dL (6-20) H 12/23/24 14:42 Creatinine 1.5 mg/dL (0.6-1.3) H 12/23/24 14:42 Estimated GFR (MDRD) 47 (>89) L 12/23/24 14:42 Glucose 129 mg/dL (74-104) H 12/23/24 14:42 Lactic Acid 0.8 mmol/L (0.5-2.2) 12/23/24 16:07 Calcium 9.3 mg/dL (8.5-10.3) 12/23/24 14:42 Total Bilirubin 0.8 mg/dL (0.2-1.0) 12/23/24 14:42 AST 24 IU/L (10-42) 12/23/24 14:42 ALT 27 IU/L (10-60) 12/23/24 14:42 Alkaline Phosphatase 58 IU/L (42-121) 12/23/24 14:42 Total Protein 6.6 g/dL (6.4-8.9) 12/23/24 14:42 Albumin 3.8 g/dL (3.2-5.5) 12/23/24 14:42 Globulin 2.8 g/dL (2.1-4.2) 12/23/24 14:42 Albumin/Globulin Ratio 1.4 (1.0-2.2) 12/23/24 14:42 Urine Color YELLOW 12/23/24 12:50 Urine Clarity HAZY (CLEAR) 12/23/24 12:50 Urine pH 6.0 PH (5.0-7.5) 12/23/24 12:50 Ur Specific [place] 1.020 (1.002-1.030) 12/23/24 12:50 Urine Protein 30 mg/dL (NEGATIVE) H 12/23/24 12:50 Urine Glucose (UA) NEGATIVE mg/dL (NEGATIVE) 12/23/24 12:50 Urine Ketones TRACE mg/dL (NEGATIVE) 12/23/24 12:50 Urine Occult Blood LARGE (NEGATIVE) H 12/23/24 12:50 Urine Nitrite NEGATIVE (NEGATIVE) 12/23/24 12:50 Urine Bilirubin NEGATIVE (NEGATIVE) 12/23/24 12:50 Urine Urobilinogen 0.2 (NORMAL) E.U./dL (NORMAL) 12/23/24 12:50 Ur Leukocyte Esterase MODERATE (NEGATIVE) H 12/23/24 12:50 Urine RBC 11-25 /HPF (0-5) H 12/23/24 12:50 Urine WBC 11-25 /HPF (0-3) H 12/23/24 12:50 Ur Squamous Epith Cells NONE SEEN (<= Few) 12/23/24 12:50 Urine Bacteria Moderate /HPF (None Seen) H 12/23/24 12:50 Ur Microscopic Review INDICATED 12/23/24 12:50 Urine Culture Comments INDICATED 12/23/24 12:50 Nasal Adenovirus (PCR) NOT DETECTED 12/23/24 15:00 Nasal B. parapertussis DNA (PCR) NOT DETECTED 12/23/24 15:00 Nasal Coronavir 229E PCR NOT DETECTED 12/23/24 15:00 Nasal Coronavir HKU1 PCR NOT DETECTED 12/23/24 15:00 Nasal Coronavir NL63 PCR NOT DETECTED 12/23/24 15:00 Nasal Coronavir OC43 PCR NOT DETECTED 12/23/24 15:00 Nasal Enterovir/Rhinovir PCR NOT DETECTED 12/23/24 15:00 Nasal Influenza B PCR NOT DETECTED 12/23/24 15:00 Nasal Influenza A PCR NOT DETECTED 12/23/24 15:00 Nasal Parainfluen 1 PCR NOT DETECTED 12/23/24 15:00 Nasal Parainfluen 2 PCR NOT DETECTED 12/23/24 15:00 Nasal Parainfluen 3 PCR NOT DETECTED 12/23/24 15:00 Nasal Parainfluen 4 PCR NOT DETECTED 12/23/24 15:00 Nasal RSV (PCR) NOT DETECTED 12/23/24 15:00 Nasal B.pertussis DNA PCR NOT DETECTED 12/23/24 15:00 Nasal C.pneumoniae (PCR) NOT DETECTED 12/23/24 15:00 [place] Human Metapneumo PCR NOT DETECTED 12/23/24 15:00 Nasal M.pneumoniae (PCR) NOT DETECTED 12/23/24 15:00 Nasal SARS-CoV-2 (PCR) NOT DETECTED 12/23/24 15:00 ABX Reporting Has patient been on IV antibiotics over the past 48 hours?: Yes Current Medications Current Medications Current Medications: Current Medications Generic Name Dose Route Start Last Admin Trade Name Freq PRN Reason Stop Dose Admin Ceftriaxone Sodium 1 gm 12/24/24 16:00 Ceftriaxone 1 Gm Vial IVP 1600 TIFFANI Heparin Sodium (Porcine) 5,000 unit 12/23/24 21:00 12/24/24 09:10 Heparin 5,000 Unit/Ml Vial SUBQ 5,000 unit BID TIFFANI Administration Multivitamins/Minerals 1 tab 12/24/24 08:00 12/24/24 09:11 Multivitamin W/Minerals Tablet PO 1 tab DAILYWM TIFFANI Administration Pantoprazole Sodium 40 mg 12/24/24 07:00 12/24/24 09:10 Pantoprazole 40 Mg Tablet PO 40 mg QDAC TIFFANI Administration Sodium Chloride 10 ml 12/23/24 19:13 Sodium Chloride Flush 0.9% 10 Ml Syringe IVP PRN PRN NEEDED PER PROVIDER ORDERS Sodium Chloride 10 ml 12/24/24 01:00 12/24/24 09:11 Sodium Chloride Flush 0.9% 10 Ml Syringe IVP 10 ml 0100,0900,1700 TIFFANI Administration Tamsulosin HCl 0.4 mg 12/24/24 09:00 12/24/24 09:10 Tamsulosin 0.4 Mg Capsule PO 0.4 mg DAILY TIFFANI Administration Trimethoprim/Sulfamethoxazole 1 tab 12/24/24 12:30 12/24/24 12:27 Sulfameth/Trimeth Ds 800/160 Mg Tablet PO 1 tab BID TIFFANI Administration
[2024-12-24] MEDS: ACETAMINOPHEN 500 MG TABLET PO ONE (15:48)
[2024-12-24] MEDS: cefTRIAXone 1 GM VIAL IVP ONE (15:49)
--- NOTE | 2024-12-24 16:06 | XRAY Report ---
PROCEDURE: [place] OR C-Arm Procedure INDICATIONS: Surgical Procedure FLUORO TIME: 0.1 MIN COMPARISON: 12/23/2024 CT FINDINGS AND IMPRESSION: Fluoroscopic images were obtained for left urologic procedure. The distal aspect of a ureteral stent is visualized. Please see operative note for full details. Reviewed by: Ramin Fiore MD on 12/24/2024 4:04 PM PST Approved by: Ramin Fiore MD on 12/24/2024 4:04 PM PST Station ID: [id number]
[2024-12-24] MEDS: cefTRIAXone 1 GM VIAL IVP SCH (16:27)
[2024-12-24] MEDS ORDERED: SULFAMETH/TRIMETH DS 800/160 MG TABLET PO ONE (21:11)
--- NOTE | 2024-12-24 21:49 | MISCELLANEOUS PROVIDER NOTE ---
Miscellaneous Provider Note - Note: Was notified by respiratory therapist after patient was transferred from the emergency department to the ICU that his oxygen had been increased from 15L oximyzer to flush non rebreather to maintain proper saturation. Patient is now in the low 90s. This is a significant decrease from the emergency department. Patient also appears to have increased labor of breathing. Chest x-ray was ordered to rule out chest tube complications including pneumothorax, worsening hemothorax, worsening pneumonia. Hi lyndsey oxygen was trialed and patient did not improve, was placed back on flush non rebreather. ABG indicated low oxygen and low CO2. Due to deteriorating status, will put patient on BiPAP, chest x-ray read by radiologist still pending.
[2024-12-25 08:59] LABS: BASOPHILS % (AUTO) 0.3 %; EOSINOPHILS # (AUTO) 0.1 10^3/uL (0.0-0.7); EOSINOPHILS % (AUTO) 2.1 %; HCT - HEMATOCRIT 35.8 % (42.0-52.0); HGB - HEMOGLOBIN 11.9 g/dL (14.0-18.0); LYMPHOCYTES # (AUTO) 0.6 10^3/uL (1.5-3.5); LYMPHOCYTES % (AUTO) 8.7 %; MEAN CORPUSCULAR HGB CONC 33.2 g/dL (32.0-36.0); MEAN CORPUSCULAR VOLUME 87.3 fL (80.0-94.0); MEAN PLATELET VOLUME 9.9 fL (7.4-11.4); MONOCYTES # (AUTO) 0.4 10^3/uL (0.0-1.0); MONOCYTES % (AUTO) 6.7 %; NEUTROPHILS # (AUTO) 5.3 10^3/uL (1.5-6.6); NEUTROPHILS % (AUTO) 81.1 %; PLT - PLATELET COUNT 139 10^3/uL (130-450); RED CELL DISTRIBUTION WIDTH 13.1 % (12.0-15.0); WHITE BLOOD COUNT 6.6 x10^3/uL (4.8-10.8)
[2024-12-25 09:14] LABS: POTASSIUM 3.5 mmol/L (3.5-4.5)
[2024-12-25] MEDS ORDERED: VANCOMYCIN INJ 1.5 GM in SODIUM CHLORIDE 0.9% 500 ML IV SCH (10:00)
--- NOTE | 2024-12-25 12:33 | PHARMACY PROGRESS NOTE ---
Vancomycin Therapy Monitoring Patient Information Vancomycin Pt Height (inches): 73 Vancomycin Patient Weight (kg): 96.4 Vanco Rx Serum Creatinine (mg/dL): 1.0 Vancomycin Therapy BUN (mg/dL): 19 Vancomycin Therapy Calculated Creatinine Cl (ml/min): 103 Concurrent Antibiotics: Trimethoprim-sulfamethoxazole Vancomycin Therapy Goals Treatment Indication: septicemia Vancomycin Target Range: Vancomycin AUC Target Range 400-600 mcg*h/ml Assessment of Current Therapy Vancomycin Loading Dose (GM, if applicable): 2G Current Vancomycin Maintenance Regimen (if applicable): 1.5G Q24H Estimated Cmax (Peak, mcg/ml): 25.8 Estimated Cmin (Trough, mcg/ml): 16.3 Estimated AUC (mcg*hr/ml): 497 Plan: Pharmacy recommendation: Continue current regimen Areas for additonal monitoring Areas for additional monitoring: Therapy de-escalation based on culture results
[2024-12-25 14:43] LABS: B. PARAPERTUSSIS- RESP PCR PAN NOT DETECTED; B. PERTUSSIS- RESP PCR PANEL NOT DETECTED; C. PNEUMONIAE- RESP PCR PANEL NOT DETECTED; CORONAVIRUS 229E-RESP PCR NOT DETECTED; CORONAVIRUS HKU1-RESP PCR NOT DETECTED; CORONAVIRUS NL63-RESP PCR NOT DETECTED; CORONAVIRUS OC43-RESP PCR NOT DETECTED; HUMAN METAPNEUMOVIRUS NOT DETECTED; INFLUENZA A- RESP PCR PANEL NOT DETECTED; INFLUENZA B - RESP PCR PANEL NOT DETECTED; M. PNEUMONIAE- RESP PCR PANEL NOT DETECTED; PARAINFLUENZA VIRUS 1 NOT DETECTED; PARAINFLUENZA VIRUS 2 NOT DETECTED; PARAINFLUENZA VIRUS 4 NOT DETECTED; RHINOVIRUS/ENTEROVIRUS NOT DETECTED; RSV- RESP PCR PANEL NOT DETECTED; SARS-CoV-2 -RESP PCR PANEL NOT DETECTED
[2024-12-25] MEDS: VANCOMYCIN INJ 2 GM in SODIUM CHLORIDE 0.9% 500 ML IV ONE (15:00)
--- NOTE | 2024-12-25 16:44 | PROVIDER PROGRESS NOTE ---
Assessment/Plan Problem List (1) Gram-positive bacteremia: Assessment/Plan: * Pt stable, afebrile, and relatively asymptomatic * Preliminary blood cultures now confirmed Staph aureus, sensitivities pending * Given staff confirmed, will change ceftriaxone to vancomycin * Continue to follow-up blood culture, pending MSSA versus MRSA will determine duration of antibiotic therapy * Once final species and sensitivities are available, we will attempt to obtain phone consult with infectious disease (2) Obstructive uropathy: Assessment/Plan: * Patient presented with obstructive uropathy * Is s/p ureteral stent placement on 12/23/[address] Salgado (3) Urinary tract infection: Qualifiers: Urinary tract infection type: site unspecified Hematuria presence: w ithout hematuria Qualified Code(s): N39.0 - Urinary tract infection, site not specified Assessment/Plan: * Urine culture confirms staph * Continue vancomycin as above (4) Acute kidney injury: Assessment/Plan: * Cr 1.5 on admit, now normal * JACQUELINE resolved (5) Hypertension: Qualifiers: Hypertension type: unspecified Qualified Code(s): I10 - Essential (primary) hypertension Assessment/Plan: * BP normal, holding lisinopril (6) GERD (gastroesophageal reflux disease): Qualifiers: Esophagitis presence: esophagitis presence not specified Qualified Code(s): K21.9 - Gastro-esophageal reflux disease without esophagitis Assessment/Plan: * Stable * Cont PPI Current Meds Current Meds: Current Medications Generic Name Dose Route Start Last Admin Trade Name Freq PRN Reason Stop Dose Admin Heparin Sodium (Porcine) 5,000 unit 12/23/24 21:00 12/25/24 08:28 Heparin 5,000 Unit/Ml Vial SUBQ 5,000 unit BID TIFFANI Administration Vancomycin HCl 1.5 gm/ Sodium 500 mls @ 250 mls/hr 12/26/24 14:30 Chloride IV Q24H TIFFANI Multivitamins/Minerals 1 tab 12/24/24 08:00 12/25/24 08:28 Multivitamin W/Minerals Tablet PO 1 tab DAILYWM TIFFANI Administration Pantoprazole Sodium 40 mg 12/24/24 07:00 12/25/24 06:09 Pantoprazole 40 Mg Tablet PO 40 mg QDAC TIFFANI Administration Sodium Chloride 10 ml 12/23/24 19:13 Sodium Chloride Flush 0.9% 10 Ml Syringe IVP PRN PRN NEEDED PER PROVIDER ORDERS Sodium Chloride 10 ml 12/24/24 01:00 12/25/24 08:31 Sodium Chloride Flush 0.9% 10 Ml Syringe IVP 10 ml 0100,0900,1700 TIFFANI Administration Tamsulosin HCl 0.4 mg 12/24/24 09:00 12/25/24 08:28 Tamsulosin 0.4 Mg Capsule PO 0.4 mg DAILY TIFFANI Administration Trimethoprim/Sulfamethoxazole 1 tab 12/24/24 21:00 12/25/24 08:28 Sulfameth/Trimeth Ds 800/160 Mg Tablet PO 1 tab BID TIFFANI Administration Lab Result Lab results reviewed: Yes 12/25/24 08:50 12/25/24 08:50 Diagnostic Imaging Results Diagnostic Imaging Results: Final report reviewed Additional Planning Condition/Complexity: Stable My Orders: My Active Orders 12/25/24 08:50 Blood Culture [CULTURE, BLOOD #1] [RM] DAILY 12/25/24 08:58 Blood Culture [CULTURE, BLOOD #2] [RM] DAILY 12/26/24 05:00 BMP - BASIC METABOLIC PANEL [CHEM] DAILYLAB CBC [CBC - COMP BLD CT W/AUTO DIFF] [HEME] DAILYLAB 12/27/24 05:00 BMP - BASIC METABOLIC PANEL [CHEM] DAILYLAB CBC [CBC - COMP BLD CT W/AUTO DIFF] [HEME] DAILYLAB Subjective Subjective Patient Reports: Feeling Better and Resting Comfortably Objective Vital Signs: Vital Signs - 24 hr 12/24/24 21:00 12/24/24 23:35 12/25/24 04:54 Temperature 36.5 C 36.6 C 36.6 C Temperature Source Temporal Artery Scan Temporal Artery Scan Temporal Artery Scan Pulse Rate [Brachial] 54 L 51 L 52 L Respiratory Rate 20 20 20 Blood Pressure [Right Brachial artery] 147/84 H 137/77 H 139/80 H O2 Saturation 95 95 94 O2 Source Room air Room air Room air Sedation scale 0-Fully awake 1-Arouses easily 0-Fully awake Pain Intensity 0 0 0 12/25/24 08:06 12/25/24 13:00 12/25/24 15:54 Temperature 36.8 C 37.1 C 36.8 C Temperature Source Temporal Artery Scan Temporal Artery Scan Temporal Artery Scan Pulse Rate [Brachial] 53 L 57 L 54 L Respiratory Rate 18 18 18 Blood Pressure [Right Brachial artery] 155/84 H 131/76 H 132/76 H O2 Saturation 96 96 96 O2 Source Room air Room air Room air Sedation scale 0-Fully awake 0-Fully awake 0-Fully awake Pain Intensity 0 Oxygen O2 Source Room air I&O (Last 24 Hrs): Intake and Output Totals x24h 12/23/24 12/24/24 12/25/24 23:59 23:59 23:59 Intake Total 3200 / 3200 1070 / 1070 1580 / 1580 Balance 3200 / 3200 1070 / 1070 1580 / 1580 General: Alert and Oriented x3 HEENT: Atraumatic and Mucous membr. moist/pink Neuro: Alert Cardiovascular: Regular rate, Normal S1, Normal S2 and No murmurs Respiratory: No respiratory distress and Breath sounds nml Abdomen: Normal bowel sounds, Soft, No tenderness and No hepatospenomegaly Extremities: No clubbing and No edema Skin: No rashes Results Results: Laboratory Results WBC 6.6 x10^3/uL (4.8-10.8) 12/25/24 08:50 RBC 4.10 10^6/uL (4.70-6.10) L 12/25/24 08:50 Hgb 11.9 g/dL (14.0-18.0) L 12/25/24 08:50 Hct 35.8 % (42.0-52.0) L 12/25/24 08:50 MCV 87.3 fL (80.0-94.0) 12/25/24 08:50 MCH 29.0 pg (27.0-31.0) 12/25/24 08:50 MCHC 33.2 g/dL (32.0-36.0) 12/25/24 08:50 RDW 13.1 % (12.0-15.0) 12/25/24 08:50 Plt Count 139 10^3/uL (130-450) 12/25/24 08:50 MPV 9.9 fL (7.4-11.4) 12/25/24 08:50 Neut # (Auto) 5.3 10^3/uL (1.5-6.6) 12/25/24 08:50 Lymph # (Auto) 0.6 10^3/uL (1.5-3.5) L 12/25/24 08:50 [place] # (Auto) 0.4 10^3/uL (0.0-1.0) 12/25/24 08:50 Eos # (Auto) 0.1 10^3/uL (0.0-0.7) 12/25/24 08:50 Baso # (Auto) 0.0 10^3/uL (0.0-0.1) 12/25/24 08:50 Absolute Nucleated RBC 0.00 x10^3/uL 12/25/24 08:50 Nucleated RBC % 0.0 /100WBC 12/25/24 08:50 Sodium 137 mmol/L (135-145) 12/25/24 08:50 Potassium 3.5 mmol/L (3.5-4.5) 12/25/24 08:50 Chloride 104 mmol/L (101-111) 12/25/24 08:50 Carbon Dioxide 27 mmol/L (21-32) 12/25/24 08:50 Anion Gap 6.0 (6-13) 12/25/24 08:50 BUN 19 mg/dL (6-20) 12/25/24 08:50 Creatinine 1.0 mg/dL (0.6-1.3) 12/25/24 08:50 Estimated GFR (MDRD) 75 (>89) L 12/25/24 08:50 Glucose 142 mg/dL (74-104) H 12/25/24 08:50 Lactic Acid 0.8 mmol/L (0.5-2.2) 12/23/24 16:07 Calcium 9.0 mg/dL (8.5-10.3) 12/25/24 08:50 Total Bilirubin 0.8 mg/dL (0.2-1.0) 12/23/24 14:42 AST 24 IU/L (10-42) 12/23/24 14:42 ALT 27 IU/L (10-60) 12/23/24 14:42 Alkaline Phosphatase 58 IU/L (42-121) 12/23/24 14:42 Total Protein 6.6 g/dL (6.4-8.9) 12/23/24 14:42 Albumin 3.8 g/dL (3.2-5.5) 12/23/24 14:42 Globulin 2.8 g/dL (2.1-4.2) 12/23/24 14:42 Albumin/Globulin Ratio 1.4 (1.0-2.2) 12/23/24 14:42 Urine Color YELLOW 12/23/24 12:50 Urine Clarity HAZY (CLEAR) 12/23/24 12:50 Urine pH 6.0 PH (5.0-7.5) 12/23/24 12:50 Ur Specific [place] 1.020 (1.002-1.030) 12/23/24 12:50 Urine Protein 30 mg/dL (NEGATIVE) H 12/23/24 12:50 Urine Glucose (UA) NEGATIVE mg/dL (NEGATIVE) 12/23/24 12:50 Urine Ketones TRACE mg/dL (NEGATIVE) 12/23/24 12:50 Urine Occult Blood LARGE (NEGATIVE) H 12/23/24 12:50 Urine Nitrite NEGATIVE (NEGATIVE) 12/23/24 12:50 Urine Bilirubin NEGATIVE (NEGATIVE) 12/23/24 12:50 Urine Urobilinogen 0.2 (NORMAL) E.U./dL (NORMAL) 12/23/24 12:50 Ur Leukocyte Esterase MODERATE (NEGATIVE) H 12/23/24 12:50 Urine RBC 11-25 /HPF (0-5) H 12/23/24 12:50 Urine WBC 11-25 /HPF (0-3) H 12/23/24 12:50 Ur Squamous Epith Cells NONE SEEN (<= Few) 12/23/24 12:50 Urine Bacteria Moderate /HPF (None Seen) H 12/23/24 12:50 Ur Microscopic Review INDICATED 12/23/24 12:50 Urine Culture Comments INDICATED 12/23/24 12:50 Nasal Adenovirus (PCR) NOT DETECTED 12/25/24 13:39 Nasal B. parapertussis DNA (PCR) NOT DETECTED 12/25/24 13:39 Nasal Coronavir 229E PCR NOT DETECTED 12/25/24 13:39 Nasal Coronavir HKU1 PCR NOT DETECTED 12/25/24 13:39 Nasal Coronavir NL63 PCR NOT DETECTED 12/25/24 13:39 Nasal Coronavir OC43 PCR NOT DETECTED 12/25/24 13:39 Nasal Enterovir/Rhinovir PCR NOT DETECTED 12/25/24 13:39 Nasal Influenza B PCR NOT DETECTED 12/25/24 13:39 Nasal Influenza A PCR NOT DETECTED 12/25/24 13:39 Nasal Parainfluen 1 PCR NOT DETECTED 12/25/24 13:39 Nasal Parainfluen 2 PCR NOT DETECTED 12/25/24 13:39 Nasal Parainfluen 3 PCR NOT DETECTED 12/25/24 13:39 Nasal Parainfluen 4 PCR NOT DETECTED 12/25/24 13:39 Nasal RSV (PCR) NOT DETECTED 12/25/24 13:39 Nasal B.pertussis DNA PCR NOT DETECTED 12/25/24 13:39 Nasal C.pneumoniae (PCR) NOT DETECTED 12/25/24 13:39 [place] Human Metapneumo PCR NOT DETECTED 12/25/24 13:39 Nasal M.pneumoniae (PCR) NOT DETECTED 12/25/24 13:39 Nasal SARS-CoV-2 (PCR) NOT DETECTED 12/25/24 13:39 ABX Reporting Has patient been on IV antibiotics over the past 48 hours?: Yes Current Medications Current Medications Current Medications: Current Medications Generic Name Dose Route Start Last Admin Trade Name Freq PRN Reason Stop Dose Admin Heparin Sodium (Porcine) 5,000 unit 12/23/24 21:00 12/25/24 08:28 Heparin 5,000 Unit/Ml Vial SUBQ 5,000 unit BID TIFFANI Administration Vancomycin HCl 1.5 gm/ Sodium 500 mls @ 250 mls/hr 12/26/24 14:30 Chloride IV Q24H TIFFANI Multivitamins/Minerals 1 tab 12/24/24 08:00 12/25/24 08:28 Multivitamin W/Minerals Tablet PO 1 tab DAILYWM TIFFANI Administration Pantoprazole Sodium 40 mg 12/24/24 07:00 12/25/24 06:09 Pantoprazole 40 Mg Tablet PO 40 mg QDAC TIFFANI Administration Sodium Chloride 10 ml 12/23/24 19:13 Sodium Chloride Flush 0.9% 10 Ml Syringe IVP PRN PRN NEEDED PER PROVIDER ORDERS Sodium Chloride 10 ml 12/24/24 01:00 12/25/24 08:31 Sodium Chloride Flush 0.9% 10 Ml Syringe IVP 10 ml 0100,0900,1700 TIFFANI Administration Tamsulosin HCl 0.4 mg 12/24/24 09:00 12/25/24 08:28 Tamsulosin 0.4 Mg Capsule PO 0.4 mg DAILY TIFFANI Administration Trimethoprim/Sulfamethoxazole 1 tab 12/24/24 21:00 12/25/24 08:28 Sulfameth/Trimeth Ds 800/160 Mg Tablet PO 1 tab BID TIFFANI Administration
[2024-12-26 06:05] LABS: BASOPHILS % (AUTO) 0.6 %; EOSINOPHILS # (AUTO) 0.2 10^3/uL (0.0-0.7); EOSINOPHILS % (AUTO) 3.8 %; HCT - HEMATOCRIT 35.3 % (42.0-52.0); HGB - HEMOGLOBIN 11.8 g/dL (14.0-18.0); LYMPHOCYTES # (AUTO) 0.7 10^3/uL (1.5-3.5); LYMPHOCYTES % (AUTO) 14.6 %; MEAN CORPUSCULAR HEMOGLOBIN 29.1 pg (27.0-31.0); MEAN CORPUSCULAR HGB CONC 33.4 g/dL (32.0-36.0); MEAN CORPUSCULAR VOLUME 87.2 fL (80.0-94.0); MEAN PLATELET VOLUME 9.9 fL (7.4-11.4); MONOCYTES # (AUTO) 0.7 10^3/uL (0.0-1.0); MONOCYTES % (AUTO) 14.8 %; NEUTROPHILS # (AUTO) 3.3 10^3/uL (1.5-6.6); NEUTROPHILS % (AUTO) 65.4 %; PLT - PLATELET COUNT 175 10^3/uL (130-450); RED BLOOD COUNT 4.05 10^6/uL (4.70-6.10); RED CELL DISTRIBUTION WIDTH 13.2 % (12.0-15.0)
[2024-12-26 06:17] LABS: CREATININE 0.9 mg/dL (0.6-1.3)
--- NOTE | 2024-12-26 12:01 | ANESTHESIA PROCEDURE NOTE ---
Anesth Central Line Template Central Line Procedure Date: 12/26/24 Central Line Preparation: Consent Obtained, Time out completed, Ultrasound used and Sterile prep and drape Central line location: Right Basilic Central line type: PICC Single Lumen Central line catheter tip site resides: Superior vena cava (SVC) Central line aftercare: Secured, Placement confirmed, No pneumothorax, No complications, Bundle checklist complete and Pt tolerated well Other Info/Details: Cath cut to 40cm after measurement. Hubbed. Easily aspirates and flushes with cap. PCXR to confirm.
[2024-12-26] MEDS: VANCOMYCIN INJ 1 GM, VANCOMYCIN INJ 500 MG in SODIUM CHLORIDE 0.9% 500 ML IV SCH (14:14)
--- NOTE | 2024-12-26 18:25 | PROVIDER PROGRESS NOTE ---
Assessment/Plan Problem List (1) Gram-positive bacteremia: Assessment/Plan: * Pt stable, afebrile, and relatively asymptomatic * Initial blood culture report now final with sensitivities demonstrating burkett sensitivity of Staph aureus * Repeat blood culture from 12/25 no growth to date at 1 day * Patient now on day 2 of vancomycin * Patient received PICC line today * Plan is to continue inpatient antibiotic therapy until the 48-hour melissa of the second blood culture which at this point is negative. If at 48 hours is still no growth, patient can discharge home with outpatient antibiotics with infusion therapy. * He will need consult with infectious disease and twice weekly labs (2) Obstructive uropathy: Assessment/Plan: * Patient presented with obstructive uropathy * Is s/p ureteral stent placement on 12/23/[address] Salgado (3) Urinary tract infection: Qualifiers: Urinary tract infection type: site unspecified Hematuria presence: w ithout hematuria Qualified Code(s): N39.0 - Urinary tract infection, site not specified Assessment/Plan: * Urine culture confirms staph * Continue vancomycin as above (4) Acute kidney injury: Assessment/Plan: * Cr 1.5 on admit, now normal * JACQUELINE resolved (5) Hypertension: Qualifiers: Hypertension type: unspecified Qualified Code(s): I10 - Essential (primary) hypertension Assessment/Plan: * BP normal, holding lisinopril (6) GERD (gastroesophageal reflux disease): Qualifiers: Esophagitis presence: esophagitis presence not specified Qualified Code(s): K21.9 - Gastro-esophageal reflux disease without esophagitis Assessment/Plan: * Stable * Cont PPI Current Meds Current Meds: Current Medications Generic Name Dose Route Start Last Admin Trade Name Freq PRN Reason Stop Dose Admin Heparin Sodium (Porcine) 5,000 unit 12/23/24 21:00 12/26/24 09:08 Heparin 5,000 Unit/Ml Vial SUBQ 5,000 unit BID TIFFANI Administration Vancomycin HCl 1 gm/ 500 mls @ 250 mls/hr 12/26/24 14:30 12/26/24 14:14 Vancomycin HCl 500 mg/ Sodium IV 250 mls/hr Chloride Q24H TIFFANI Administration Multivitamins/Minerals 1 tab 12/24/24 08:00 12/26/24 09:08 Multivitamin W/Minerals Tablet PO 1 tab DAILYWM TIFFANI Administration Pantoprazole Sodium 40 mg 12/24/24 07:00 12/26/24 06:10 Pantoprazole 40 Mg Tablet PO 40 mg QDAC TIFFANI Administration Sodium Chloride 10 ml 12/23/24 19:13 Sodium Chloride Flush 0.9% 10 Ml Syringe IVP PRN PRN NEEDED PER PROVIDER ORDERS Sodium Chloride 10 ml 12/24/24 01:00 12/26/24 09:10 Sodium Chloride Flush 0.9% 10 Ml Syringe IVP 10 ml 0100,0900,1700 TIFFANI Administration Tamsulosin HCl 0.4 mg 12/24/24 09:00 12/26/24 09:07 Tamsulosin 0.4 Mg Capsule PO 0.4 mg DAILY TIFFANI Administration Trimethoprim/Sulfamethoxazole 1 tab 12/24/24 21:00 12/26/24 09:07 Sulfameth/Trimeth Ds 800/160 Mg Tablet PO 1 tab BID TIFFANI Administration Lab Result Lab results reviewed: Yes 12/26/24 05:28 12/26/24 05:28 Diagnostic Imaging Results Diagnostic Imaging Results: Final report reviewed Additional Planning Condition/Complexity: Stable My Orders: My Active Orders 12/26/24 10:22 PICC Line Care [RC] Q4H PICC Line Insert [RC] .ONCE 12/27/24 05:00 BMP - BASIC METABOLIC PANEL [CHEM] DAILYLAB CBC [CBC - COMP BLD CT W/AUTO DIFF] [HEME] DAILYLAB Objective Vital Signs: Vital Signs - 24 hr 12/25/24 20:26 12/25/24 23:29 12/26/24 08:13 Temperature 36.7 C 36.6 C 36.6 C Temperature Source Skin Temporal Artery Scan Temporal Artery Scan Pulse Rate [Brachial] 52 L 50 L 50 L Respiratory Rate 18 18 16 Blood Pressure [Left Brachial artery] Blood Pressure [Right Brachial artery] 135/76 H 148/76 H 167/91 H O2 Saturation 95 96 98 O2 Source Room air Room air Room air Sedation scale 0-Fully awake 0-Fully awake 0-Fully awake Pain Intensity 0 0 12/26/24 16:40 12/26/24 16:41 Temperature 36.9 C Temperature Source Temporal Artery Scan Pulse Rate [Brachial] 50 L Respiratory Rate 18 Blood Pressure [Left Brachial artery] 152/86 H Blood Pressure [Right Brachial artery] O2 Saturation 97 O2 Source Room air Sedation scale Pain Intensity 0 Oxygen O2 Source Room air I&O (Last 24 Hrs): Intake and Output Totals x24h 12/24/24 12/25/24 12/26/24 23:59 23:59 23:59 Intake Total 1070 / 1070 2900 / 2900 1939 Balance 1070 / 1070 290 / 2900 1939 General: Alert and Oriented x3 HEENT: Atraumatic and Mucous membr. moist/pink Neuro: Alert Cardiovascular: Regular rate, Normal S1, Normal S2 and No murmurs Respiratory: No respiratory distress and Breath sounds nml Abdomen: Normal bowel sounds, Soft, No tenderness and No hepatospenomegaly Extremities: No clubbing and No edema Skin: No rashes Results Results: Laboratory Results WBC 5.0 x10^3/uL (4.8-10.8) 12/26/24 05:28 RBC 4.05 10^6/uL (4.70-6.10) L 12/26/24 05:28 Hgb 11.8 g/dL (14.0-18.0) L 12/26/24 05:28 Hct 35.3 % (42.0-52.0) L 12/26/24 05:28 MCV 87.2 fL (80.0-94.0) 12/26/24 05:28 MCH 29.1 pg (27.0-31.0) 12/26/24 05:28 MCHC 33.4 g/dL (32.0-36.0) 12/26/24 05:28 RDW 13.2 % (12.0-15.0) 12/26/24 05:28 Plt Count 175 10^3/uL (130-450) 12/26/24 05:28 MPV 9.9 fL (7.4-11.4) 12/26/24 05:28 Neut # (Auto) 3.3 10^3/uL (1.5-6.6) 12/26/24 05:28 Lymph # (Auto) 0.7 10^3/uL (1.5-3.5) L 12/26/24 05:28 [place] # (Auto) 0.7 10^3/uL (0.0-1.0) 12/26/24 05:28 Eos # (Auto) 0.2 10^3/uL (0.0-0.7) 12/26/24 05:28 Baso # (Auto) 0.0 10^3/uL (0.0-0.1) 12/26/24 05:28 Absolute Nucleated RBC 0.00 x10^3/uL 12/26/24 05:28 Nucleated RBC % 0.0 /100WBC 12/26/24 05:28 Sodium 139 mmol/L (135-145) 12/26/24 05:28 Potassium 4.0 mmol/L (3.5-4.5) 12/26/24 05:28 Chloride 106 mmol/L (101-111) 12/26/24 05:28 Carbon Dioxide 26 mmol/L (21-32) 12/26/24 05:28 Anion Gap 7.0 (6-13) 12/26/24 05:28 BUN 18 mg/dL (6-20) 12/26/24 05:28 Creatinine 0.9 mg/dL (0.6-1.3) 12/26/24 05:28 Estimated GFR (MDRD) 85 (>89) L 12/26/24 05:28 Glucose 95 mg/dL (74-104) 12/26/24 05:28 Lactic Acid 0.8 mmol/L (0.5-2.2) 12/23/24 16:07 Calcium 9.0 mg/dL (8.5-10.3) 12/26/24 05:28 Total Bilirubin 0.8 mg/dL (0.2-1.0) 12/23/24 14:42 AST 24 IU/L (10-42) 12/23/24 14:42 ALT 27 IU/L (10-60) 12/23/24 14:42 Alkaline Phosphatase 58 IU/L (42-121) 12/23/24 14:42 Total Protein 6.6 g/dL (6.4-8.9) 12/23/24 14:42 Albumin 3.8 g/dL (3.2-5.5) 12/23/24 14:42 Globulin 2.8 g/dL (2.1-4.2) 12/23/24 14:42 Albumin/Globulin Ratio 1.4 (1.0-2.2) 12/23/24 14:42 Urine Color YELLOW 12/23/24 12:50 Urine Clarity HAZY (CLEAR) 12/23/24 12:50 Urine pH 6.0 PH (5.0-7.5) 12/23/24 12:50 Ur Specific [place] 1.020 (1.002-1.030) 12/23/24 12:50 Urine Protein 30 mg/dL (NEGATIVE) H 12/23/24 12:50 Urine Glucose (UA) NEGATIVE mg/dL (NEGATIVE) 12/23/24 12:50 Urine Ketones TRACE mg/dL (NEGATIVE) 12/23/24 12:50 Urine Occult Blood LARGE (NEGATIVE) H 12/23/24 12:50 Urine Nitrite NEGATIVE (NEGATIVE) 12/23/24 12:50 Urine Bilirubin NEGATIVE (NEGATIVE) 12/23/24 12:50 Urine Urobilinogen 0.2 (NORMAL) E.U./dL (NORMAL) 12/23/24 12:50 Ur Leukocyte Esterase MODERATE (NEGATIVE) H 12/23/24 12:50 Urine RBC 11-25 /HPF (0-5) H 12/23/24 12:50 Urine WBC 11-25 /HPF (0-3) H 12/23/24 12:50 Ur Squamous Epith Cells NONE SEEN (<= Few) 12/23/24 12:50 Urine Bacteria Moderate /HPF (None Seen) H 12/23/24 12:50 Ur Microscopic Review INDICATED 12/23/24 12:50 Urine Culture Comments INDICATED 12/23/24 12:50 Nasal Adenovirus (PCR) NOT DETECTED 12/25/24 13:39 Nasal B. parapertussis DNA (PCR) NOT DETECTED 12/25/24 13:39 Nasal Coronavir 229E PCR NOT DETECTED 12/25/24 13:39 Nasal Coronavir HKU1 PCR NOT DETECTED 12/25/24 13:39 Nasal Coronavir NL63 PCR NOT DETECTED 12/25/24 13:39 Nasal Coronavir OC43 PCR NOT DETECTED 12/25/24 13:39 Nasal Enterovir/Rhinovir PCR NOT DETECTED 12/25/24 13:39 Nasal Influenza B PCR NOT DETECTED 12/25/24 13:39 Nasal Influenza A PCR NOT DETECTED 12/25/24 13:39 Nasal Parainfluen 1 PCR NOT DETECTED 12/25/24 13:39 Nasal Parainfluen 2 PCR NOT DETECTED 12/25/24 13:39 Nasal Parainfluen 3 PCR NOT DETECTED 12/25/24 13:39 Nasal Parainfluen 4 PCR NOT DETECTED 12/25/24 13:39 Nasal RSV (PCR) NOT DETECTED 12/25/24 13:39 Nasal B.pertussis DNA PCR NOT DETECTED 12/25/24 13:39 Nasal C.pneumoniae (PCR) NOT DETECTED 12/25/24 13:39 Lenard Human Metapneumo PCR NOT DETECTED 12/25/24 13:39 Nasal M.pneumoniae (PCR) NOT DETECTED 12/25/24 13:39 Nasal SARS-CoV-2 (PCR) NOT DETECTED 12/25/24 13:39 ABX Reporting Has patient been on IV antibiotics over the past 48 hours?: Yes Current Medications Current Medications Current Medications: Current Medications Generic Name Dose Route Start Last Admin Trade Name Freq PRN Reason Stop Dose Admin Heparin Sodium (Porcine) 5,000 unit 12/23/24 21:00 12/26/24 09:08 Heparin 5,000 Unit/Ml Vial SUBQ 5,000 unit BID TIFFANI Administration Vancomycin HCl 1 gm/ 500 mls @ 250 mls/hr 12/26/24 14:30 12/26/24 14:14 Vancomycin HCl 500 mg/ Sodium IV 250 mls/hr Chloride Q24H TIFFANI Administration Multivitamins/Minerals 1 tab 12/24/24 08:00 12/26/24 09:08 Multivitamin W/Minerals Tablet PO 1 tab DAILYWM TIFFANI Administration Pantoprazole Sodium 40 mg 12/24/24 07:00 12/26/24 06:10 Pantoprazole 40 Mg Tablet PO 40 mg QDAC TIFFANI Administration Sodium Chloride 10 ml 12/23/24 19:13 Sodium Chloride Flush 0.9% 10 Ml Syringe IVP PRN PRN NEEDED PER PROVIDER ORDERS Sodium Chloride 10 ml 12/24/24 01:00 12/26/24 09:10 Sodium Chloride Flush 0.9% 10 Ml Syringe IVP 10 ml 0100,0900,1700 TIFFANI Administration Tamsulosin HCl 0.4 mg 12/24/24 09:00 12/26/24 09:07 Tamsulosin 0.4 Mg Capsule PO 0.4 mg DAILY TIFFANI Administration Trimethoprim/Sulfamethoxazole 1 tab 12/24/24 21:00 12/26/24 09:07 Sulfameth/Trimeth Ds 800/160 Mg Tablet PO 1 tab BID TIFFANI Administration
--- NOTE | 2024-12-26 18:31 | XRAY Report ---
PROCEDURE: XR Chest for Line Placement INDICATIONS: new PICC @R basilic v. TECHNIQUE: One view of the chest was acquired. COMPARISON: None FINDINGS: Surgical changes and devices: Right-sided PICC line tip in the mid SVC Lungs and pleura: No pleural effusions or pneumothorax. Lungs are clear. Mediastinum: Mediastinal contours appear normal. Heart size is normal. Bones and chest wall: No suspicious bony lesions. Overlying soft tissues appear unremarkable. IMPRESSION: Right-sided PICC line tip mid SVC. No pneumothorax. Reviewed by: Negro Javier MD on 12/26/2024 5:29 PM [place] Approved by: Negro Javier MD on 12/26/2024 5:29 PM [facility] Station ID: [id number]
[2024-12-27 06:03] LABS: BASOPHILS % (AUTO) 0.8 %; EOSINOPHILS # (AUTO) 0.2 10^3/uL (0.0-0.7); EOSINOPHILS % (AUTO) 4.3 %; HGB - HEMOGLOBIN 12.5 g/dL (14.0-18.0); LYMPHOCYTES # (AUTO) 0.8 10^3/uL (1.5-3.5); MEAN CORPUSCULAR HEMOGLOBIN 29.3 pg (27.0-31.0); MEAN CORPUSCULAR HGB CONC 33.8 g/dL (32.0-36.0); MEAN CORPUSCULAR VOLUME 86.9 fL (80.0-94.0); MONOCYTES # (AUTO) 0.7 10^3/uL (0.0-1.0); MONOCYTES % (AUTO) 14.1 %; NEUTROPHILS # (AUTO) 3.3 10^3/uL (1.5-6.6); PLT - PLATELET COUNT 181 10^3/uL (130-450); RED BLOOD COUNT 4.26 10^6/uL (4.70-6.10); RED CELL DISTRIBUTION WIDTH 12.9 % (12.0-15.0); WHITE BLOOD COUNT 5.1 x10^3/uL (4.8-10.8)
[2024-12-27 06:26] LABS: CALCIUM 9.3 mg/dL (8.5-10.3); CREATININE 0.9 mg/dL (0.6-1.3); POTASSIUM 4.1 mmol/L (3.5-4.5)
[2024-12-27] MEDS ORDERED: SODIUM CHLORIDE 0.9% 500 ML IV ONE (14:31)
[2024-12-27] MEDS ORDERED: VANCOMYCIN 1 GM VIAL ONE (14:31)
--- NOTE | 2024-12-27 16:12 | Discharge Summary ---
"Discharge Summary Admit Date: 12/23/24 Discharge Date: 12/27/24 Discharging Provider: Dr Cleveland Dugan Primary Care Provider: Eliane MARTÍNEZ Code Status: Attempt Resuscitation DIAGNOSES Admission Diagnoses: * Obstructive uropathy - resolved * UTI - stable * JACQUELINE - Resolved * HTN - Stable Discharge Diagnoses with Status of Each Condition: * MSSA Bacteremia - Stable * UTI - Stable * HTN - Stable * GERD - Stable HPI History of Present Illness: Patient is a 64-year-old male with a history of recurrent UTIs, usually with Staph aureus who presents with fevers, aches, chills.He states been going on for the past two days. He has a poor appetite, and nothing has been tasting good. A few years ago, he had a urine infection that required hospitalization, he felt similarly. He is having no suprapubic pain, no dysuria, no urinary urgency, incontinence, or any other urinary symptoms at this time. He has a long history of recurrent urinary tract infections, previous urine cultures have grown Staph aureus. He has had multiple cystoscopies in the past as well. He was placed on prophylactic Bactrim for a short period of time. He is not currently doing this. He has plans with his urologist to get a TURP done in the outpatient setting. CONSULTS | PROCEDURES Consultations: Dr Salgado - Urology Procedures: Cystoscopy with ureteral stent placement HOSPITAL COURSE Hospital Course: Patient is a 64-year-old male who Was admitted for obstructive uropathy started on IV antibiotics and taken to the OR by urology for cystoscopy with ureteral stent placement. Initial antibiotic therapy with ceftriaxone. Patient tolerated the procedure well and by the next morning was feeling significantly better and nearly asymptomatic with normal vital signs. His labs trended in the direction of correction. His JACQUELINE resolved by day 2 of hospital stay. Patient was feeling well hoping to discharge home however his blood cultures from the ED grew gram-positive cocci and eventually MSSA leading to pursuit of further treatment appropriate for MSSA bacteremia. A PICC line was placed in the R arm. He was transitioned Vancomycin, and echocardiogram was obtained which showed no evidence of vegetations. Repeat blood cultures on the day of discharge showed no growth to date at 48 hours. Health care team provided coordination for the patient to receive long-term antibiotic therapy with [facility] infusion therapy with cefazolin 2 g IV every 8 hours along with follow-up with PCP with labs to include CBC and BMP twice weekly on Mondays and . In addition, he will be referred to infectious disease specialist likely at [facility]. Over the weekend, until he can get started on cefazolin, he will [place] [facility] [place] Monday and again on Monday at which point he will transition to cefazolin on .Plan will be for a minimum 2-week duration of IV antibiotic treatment or as directed by infectious disease when he is seen in the outpatient setting. ALLERGIES Allergies Allergy/AdvReac Type Severity Reaction Status Date / Time No Known Drug Allergies Allergy Verified 12/23/24 12:38 MEDICATIONS Ambulatory Orders Medication Instructions Recorded Confirmed tamsulosin 0.4 mg capsule 0.4 mg PO DAILY #10 caps 02/16/17 12/24/24 lisinopril 10 mg tablet 10 mg PO DAILY 09/12/24 12/24/24 multivitamin (Daily Multi-Vitamin 1 tab PO DAILY 09/12/24 12/24/24 tablet) omeprazole magnesium 10 mg oral 10 mg PO DAILY 09/12/24 12/24/24 suspension,delayed release (Prilosec) PHYSICAL EXAM AT DISCHARGE General Appearance: positive No acute distress Respiratory: positive No respiratory distress Cardiovascular: positive No murmur Abdomen: positive No organomegaly Extremities: positive Nml appearance Neurologic/Psychiatric: positive Oriented x3 LABS 12/27/24 05:27 12/27/24 05:27 DIAGNOSTIC IMAGING Diagnostic Imaging Results: Final report reviewed SEPSIS Current Stage of Sepsis: Resolved Possible source of Sepsis: Genitourinary Confirmed Source and Organism (if known) of Sepsis: MSSA Sepsis Associated Organ Dysfunction: Sepsis Criteria: Suspected or Documented TIME SPENT Time Spent in Discharge (Minutes): 45 Discharge Plan Discharge Patient Disposition: 01 Home, Self Care Condition: Stable Medically Cleared Date:: 12/27/24 Prescriptions: Continued tamsulosin 0.4 MG capsule 0.4 mg PO DAILY Qty: 10 0RF lisinopril 10 mg tablet 10 mg PO DAILY Prilosec 10 mg susp,delayed release for recon 10 mg PO DAILY multivitamin [Daily Multi-Vitamin] Tablet 1 tab PO DAILY Activity Restrictions: Activity as Tolerated Diet: Regular Plan of Treatment: * Discharge home tonight * Ar[place] [facility] [place] and Monday for antibiotics, Vancomycin * Meet with [facility] on Monday to start taking Cephazolin 2gm every 8 hours for 2 weeks * Follow up with PCP * Check labs with PCP (CBC and BMP) every Monday and while on antibiotics * Check in with [facility] as directed for PICC line care * Get referral from PCP to Infectious Disease Dr at [facility] - Dr Johnson Print Language: Hungarian Patient Instructions: Stents Ureteral Stand Alone Forms: PCP List Follow-up Care: Tang Salgado MD [Provider Admit Priv/Credential] - (Followup with Dr Burroughs at [facility], but can followup with Dr Salgado if needed) Antwan Jones MD [Primary Care Provider] -"
[2024-12-27 18:05] VITALS: BP 155/94; TEMP 97.7; O2SAT 95
== END 2024-12-27 18:05 | disposition home or self-care (01) | DRG 854 ==
LOC: MS3 12:31 → ED 12:31 → MS3 17:42 → SDS 17:42 → MS2 17:42 → ED 18:07 → UNDODEPER 18:07 → MS2 19:19 → UNDODISIN 12-27 18:05
PROVIDERS: ADMIT Internal Medicine; ATTEND Family Medicine Sports Medicine
DX: N40.0 Benign prostatic hyperplasia without lower urinary tract symptoms; N13.6 Pyonephrosis; N17.9 Acute kidney failure, unspecified; N13.0 Hydronephrosis with ureteropelvic junction obstruction; K21.9 Gastro-esophageal reflux disease without esophagitis; Z87.891 Personal history of nicotine dependence; Z20.828 Contact with and (suspected) exposure to other viral communicable diseases; A41.01 Sepsis due to Methicillin susceptible Staphylococcus aureus; I10 Essential (primary) hypertension; Z79.899 Other long term (current) drug therapy; Z20.818 Contact with and (suspected) exposure to other bacterial communicable diseases; Z20.822 Contact with and (suspected) exposure to COVID-19